=== PATIENT | female | born 1950 | race Caucasian/White ===

== ENCOUNTER 2016-11-10 01:48 | Emergency (ER) | payer MEDICARE, BC ==
[2016-11-10 02:00] VITALS: BP 181/95
--- NOTE | 2016-11-10 02:08 | EDM.PDOC ---
ED HPI GI/ABDOMINAL - General Chief Complaint: Abdominal Pain Stated Complaint: UPPER ABDOMINAL PAIN Time Seen by Provider: 11/10/16 02:00 - History of Present Illness INITIAL COMMENTS - FREE TEXT/NARRATIVE: 66-year-old female presents emergency room with abdominal pain. This abdominal pain started this evening around 6:00. She had dinner around 5: 00. Patient does not have a recurrent history of heartburn reflux or dyspepsia. This pain is not associated with any nausea vomiting or diarrhea the patient has not noticed any fevers or chills. The pain at times radiates in towards the right breast. It does not go into her neck or into either of her arms. It is not associated with any breathing difficulties or shortness of breath. And she is not having any diaphoresis. The patient was evaluated for palpitations a little over a year ago, other than this she has no significant cardiac history. At this time the patient rates her pain at a 5/10. - Related Data Allergies/ADRs: Allergies Allergy/AdvReac Type Severity Reaction Status Date / Time erythromycin base Allergy Vomiting Verified 09/11/15 23:41 latex Allergy Rash Verified 09/11/15 23:41 tomato Allergy Cannot Verified 11/10/16 01:56 Remember Home Meds: Home Meds Cholecalciferol (Vitamin D3) [Vitamin D3] 3,000 mg PO DAILY 11/10/16 [History] Gabapentin [Neurontin] 600 mg PO BEDTIME 11/10/16 [History] L.acidoph,Paracasei, B.lactis [Probiotic] 1 cap PO DAILY 11/10/16 [History] Methocarbamol [Robaxin] 500 mg PO Q6H PRN 11/10/16 [History] Multivit-Min/FA/Lycopene/Lut [Centrum Silver Tablet] 1 tab PO DAILY 11/10/16 [ History] Sucralfate [Carafate] 1 gm PO QIDACANDBED #60 tablet 11/10/16 [Rx] atorvaSTATin [Lipitor] 20 mg PO BEDTIME 11/10/16 [History] traMADol [Ultram] 50 mg PO Q8H PRN 11/10/16 [History] Past Medical History 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: Other (see below) Other OB/BYN History: hot flashes Neurological History: Reports: Other (see below) Other Neuro History: chronic low back pain - Past Surgical History Musculoskeletal Surgical History: Reports: Other (see below) Other Musculoskeletal Surgeries/Procedures:: ganglion removed from left foot Oncologic Surgical History: Reports: Biopsy of breast Social & Family History - Family History Cardiac: Reports: Afib - Tobacco Use Smoking Status *Q: Never Smoker Second Hand Smoke Exposure: No - Recreational Drug Use Recreational Drug Use: No ED ROS GENERAL - Review of Systems Review Of Systems: See Below Constitutional: Denies: fever, chills HEENT: Reports: No symptoms Respiratory: Reports: No Symptoms Cardiovascular: Reports: No symptoms GI/Abdominal: Reports: Abdominal pain. Denies: Constipation, Diarrhea, Nausea, Vomiting : Reports: no symptoms Musculoskeletal: Reports: back pain (This is chronic) Neurological: Reports: No Symptoms Psychiatric: Reports: No symptoms ED EXAM, GI/ABD - Physical Exam Exam: See Below Exam Limited By: No limitations General Appearance: alert, no apparent distress, other (Her blood pressure was initially quite elevated this did come down fairly quickly.) Head: atraumatic, normocephalic Neck: normal inspection, supple, non-tender, full range of motion Respiratory/Chest: no respiratory distress, lungs clear, normal breath sounds Cardiovascular: regular rate, rhythm, no edema, no murmur GI/Abdominal: normal bowel sounds, soft, other (She has midepigastric discomfort no right upper quadrant discomfort. No other palpable discomfort noted area no rebound or guarding.) Back Exam: normal inspection. No: CVA tenderness (L), CVA tenderness (R) Extremities: normal inspection, no pedal edema Course - Vital Signs Last Recorded V/S: Last Vital Signs Temp 36.1 C 11/10/16 01:56 Pulse 76 11/10/16 01:56 Resp 17 11/10/16 01:56 BP 181/95 H 11/10/16 01:56 Pulse Ox 98 11/10/16 01:56 - Orders/Labs/Meds Orders: Active Orders 24 hr Category Date Time Status EKG Documentation Completion [RC] STAT Care 11/10/16 02:09 Active Chest 1V Frontal [CR] Stat Exams 11/10/16 02:08 Taken Labs: Laboratory Tests 11/10/16 11/10/16 Range/Units 02:04 02:04 WBC 8.83 (3.98-10.04) K/mm3 RBC 5.03 (3.98-5.22) M/mm3 Hgb 15.3 (11.2-15.7) gm/L Hct 44.0 (34.1-44.9) % MCV 87.5 (79.4-94.8) fl MCH 30.4 (25.6-32.2) pg MCHC 34.8 (32.2-35.5) g/dl RDW Std Deviation 39.4 (36.4-46.3) fL Plt Count 223 (182-369) K/mm3 MPV 9.4 (9.4-12.3) fl Neutrophils % (Manual) 59 (40-60) % Band Neutrophils % 0 (0-10) % Lymphocytes % (Manual) 28 (20-40) % Atypical Lymphs % 0 % Monocytes % (Manual) 11 H (2-10) % Eosinophils % (Manual) 0 L (0.7-5.8) % Basophils % (Manual) 2 H (0.1-1.2) Platelet Estimate Adequate Plt Morphology Comment Normal RBC Morph Comment Normal Sodium 140 (136-145) mEq/L Potassium 3.5 (3.5-5.1) mEq/L Chloride 105 (98-107) mEq/L Carbon Dioxide 28 (21-32) mEq/L Anion Gap 10.5 (5-15) BUN 12 (7-18) mg/dL Creatinine 0.9 (0.55-1.02) mg/dL Est Cr Clr Drug Dosing 53.81 mL/min Estimated GFR (MDRD) > 60 (>60) mL/min BUN/Creatinine Ratio 13.3 L (14-18) Glucose 115 (80-115) mg/dL Calcium 9.5 (8.5-10.1) mg/dL Total Bilirubin 1.4 H (0.2-1.0) mg/dL AST 21 (15-37) U/L ALT 42 (14-59) U/L Alkaline Phosphatase 73 (46-116) U/L Troponin I < 0.017 (0.00-0.056) ng/mL Total Protein 7.6 (6.4-8.2) g/dl Albumin 4.4 (3.4-5.0) g/dl Globulin 3.2 gm/dL Albumin/Globulin Ratio 1.4 (1-2) Lipase 146 (73-393) U/L Meds: Medications Discontinued Medications Generic Name Dose Route Start Last Admin Trade Name Jennifer PRN Reason Stop Dose Admin Al Hydroxide/Mg Hydroxide 30 0 ml 11/10/16 02:10 11/10/16 02:15 ml/ Lidocaine HCl 15 ml PO 11/10/16 02:11 45 ml ONETIME ONE Administration - Re-Assessments/Exams Free Text/Narrative Re-Assessment/Exam: 11/10/16 02:55 EKG is fairly normal no significant change from last year chest x-ray shows no acute cardiopulmonary changes no air noted under the diaphragm. Laboratory evaluation shows normal lipase and troponin her total bilirubin slightly elevated at 1.4 no other significant abnormalities noted The patient was treated with a GI cocktail her pain dropped from a 5/10 to a 2/ 10 after several minutes. 11/10/16 03:40 Patient was given Carafate and is for the most part pain-free at this point. Patient will be discharged home on Carafate as she does not tolerate PPIs. An H2 suleman would be in the future. We will obtain a gallbladder ultrasound as an outpatient Departure - Departure Time of Disposition: 03:41 Disposition: Home, Self-Care 01 Clinical Impression: Upper abdominal pain Prescriptions: Sucralfate [Carafate] 1 gm PO QIDACANDBED #60 tablet Forms: ED Department Discharge Additional Instructions: Return to the emergency room with any questions or problems. You have been started on Carafate take one before meals and at bedtime 4 times daily. Continue your other medications take one hour before or 2 hours after the Carafate You will be scheduled for a gallbladder ultrasound this next week. Followup with your regular physician after this has been done. - My Orders Last 24 Hours: My Active Orders 11/10/16 02:08 Chest 1V Frontal [CR] Stat 11/10/16 02:09 EKG Documentation Completion [RC] STAT - Assessment/Plan Last 24 Hours: My Active Orders 11/10/16 02:08 Chest 1V Frontal [CR] Stat 11/10/16 02:09 EKG Documentation Completion [RC] STAT
[2016-11-10] MEDS ORDERED: Alum Hydrox/Mag Hydrox/Simeth 30 ML, Lidocaine 2% 15 ML PO ONE ×2 (02:10)
[2016-11-10] MEDS ORDERED: Sucralfate Suspension 1 GM/10 ML Cup PO ONE (03:03)
--- NOTE | 2016-11-11 09:26 | CR ---
Chest: Portable view of the chest was obtained. Comparison: Previous chest x-ray of 09/11/15. Heart size and mediastinum are within normal limits. Lungs are clear. Mild scoliosis is present within the spine. Impression: 1. Nothing acute is seen on portable chest x-ray. Diagnostic code #2
== END 2016-11-10 04:06 | disposition home or self-care (01) ==
LOC: JD.ED 01:48
DX: R10.10 Upper abdominal pain, unspecified (principal); Z88.5 Allergy status to narcotic agent; Z79.899 Other long term (current) drug therapy
CPT/HCPCS: 36415; 71010; 80053; 83690; 84484; 85025; 93005; 99284; A9270; 99283

== ENCOUNTER 2017-02-19 07:19 | Day surgery (SDC) | payer MEDICARE, BC ==
[~2017-02-19 07:19] MED LIST: HYDROmorphone 1 MG/ML Syringe ONE; Lactated Ringers 1,000 ML ONE; Lidocaine 1% 4 ML ONE; Lidocaine 1%/Sod Bicarbonate in NS 8.4% 1 ML Syringe PRN; Midazolam 1 MG/ML 2 ML SDV ONE; Ondansetron 4 MG/2 ML SDV ONE; Propofol 200 MG/20 ML SDV ONE; Rocuronium 50 MG/5 ML Vial ONE; Sodium Chloride 0.9% 10 ML Syringe FLUSH PRN; ceFAZolin 1 GM Vial ONE; fentaNYL 250 MCG/5 ML SDV ONE
--- NOTE | 2017-02-19 07:39 | PCM.HP ---
H&P History of Present Illness - General Date of Service: 02/19/17 Admit Problem/Dx: Symptomatic cholelithiasis, hx of RUQ pain/epigastric pain, elevated total and indirect bilirubin Source of Information: Patient History Limitations: Reports: No Limitations - History of Present Illness Initial Comments - Free Text/Narative: The patient is a 66-year-old female initially referred by Dr. Cunningham for gallstone evaluation. The patient presents today for laparoscopic cholecystectomy and intra operative cholangiogram. She was last evaluated in the clinic 12/31. She denies health changes since her last visit. She did see Dr. Cunningham for preoperative clearance prior to surgery. She was considered low risk for ambulatory surgery. Holter monitor was ordered. She did have a Holter monitor showing, " Baseline normal sinus rhythm without any tachyarrhythmias or bradyarrhythmias. Premature atrial contractions (PACs) cluster between 7 p.m. and midnight that are sometimes symptomatic.' Dr. Cunningham did "Notify patient that her Holter monitor does show she is having atrial premature contractions. ~These are benign extra heartbeats that can feel like palpitations. ~they tend, in her case , to cluster between 7:00 PM and midnight. Smoking, caffeine intake, alcohol intake, stress are things that contribute to these extra heartbeats.If they're bothersome for her, there is medical treatment that we can use to help control them. ~This would be a pill called metoprolol that would help regulate her heartbeat. ~This is not necessary it is only if the symptoms are bothersome to her." She reports she notes the palpitations seem to occur after taking gabapentin. She reports she has had palpitations prior to taking gabapentin several times as well. She reports the palpitations started after her back injury. She denies any palpitations presently. She has had some throbbing in her RUQ. she reports she has some throbbing now, "like a baby is kicking." She reports she had the throbbing after eating buttered dumplings last week and had some diarrhea after this meal as well. Denies any severe abdominal pain since her last visit. Labs 12/31: CBC unremarkable, BMP normal. ~Bilirubin total elevated, but was down to 1.6, bilirubin total was 2 on 11/09/16. ~Direct bilirubin is normal at 0.4. ~Indirect is elevated at 1.2. TSH was normal at 1.42. ~ 11/10/16: Patient did go to ED for evaluation of abdominal pain. The pain began around 1 hour after eating dinner. She reported the pain would radiate toward her right breast. ~She reported a history of palpitations but these have been going on for a year. ~She had mid epigastric discomfort on exam. ~Blood pressure was elevated upon arrival at 181/95. ~~It did apparently come down per ED report she did have an EKG that showed normal ECG in ~Sinus rhythm. ~CBC was normal with the exception of slightly elevated monocytes 11 and elevated Basophil % of 2. CMP was normal following exceptions. ~Her total bilirubin was elevated at 1.4. ~Troponin was negative at less than 0.017. ~Lipase was normal at 146. ~Her chest x-ray per ED report showed no acute changes. ~The patient was treated with GI cocktail and her pain dropped from 5 out of 10 from 2/10. ~ She was discharged home on Carafate as apparently she does not tolerate proton pump inhibitors. ~Gallbladder ultrasound was obtained on an outpatient basis. ~ Limited abdominal ultrasound showed multiple gallstones. ~No gallbladder wall thickening or biliary duct dilatation was seen. ~The liver was slightly echogenic possibly due to mild fatty infiltration. ~Pancreas was within normal limits. ~She did also have an elevated total bilirubin of 2 on 11/09. ~ Described the pain previously as burning, throbbing pain in her right upper abdomen and epigastrium. ~She reports the pain is 6/10 at its worst. ~Her mother and granddaughter had gallbladder disease. ~Reports she Took Prilosec while on Meloxican and this induced heartburn. ~NO:~nausea, vomiting, or dysphagia. Previously denied ally/light colored stools. ~No greasy stools. Had nausea and vomiting at ED~visit as well. ~Was given Carfate and this made her feel sick . ~Had fish sticks and corn prior to going into ED. Has had multiple episodes of upper abdominal pain. Previously reported a right abdominal tightness like a rock at times and pain into the shoulder blades at times. ~NO icterus, jaundice, no dark urine. ~November had pain daily. Had pain once in December. ~ Once after eating at [employer] and had chicken dayana and did have some throbbing abdominal pain. ~ Hx of mild ~Constipation with Tramadol. NO: hematochezia/ melena/blood on tissue paper. ~Has external hemorrhoids, not bothersome. Has 1~soft, brown, formed, BMs daily. ~Bowel movements are described as regular and easy to pass. No unintentional weight loss. No change in stool caliber. No abdominal pain today. ~Denies history of ulcerative colitis or Crohn's disease. Denies any family history of inflammatory bowel disease or GI cancers. ~Last colonoscopy was never. Had recent negative FIT test. - Related Data Allergies/Adverse Reactions: Allergies Allergy/AdvReac Type Severity Reaction Status Date / Time latex Allergy Rash Verified 02/18/17 15:20 tomato Allergy Cannot Verified 02/18/17 15:20 Remember erythromycin base AdvReac Vomiting Verified 02/18/17 15:20 Home Medications: Home Meds Cholecalciferol (Vitamin D3) [Vitamin D3] 3,000 mg PO DAILY 11/10/16 [History] Gabapentin [Neurontin] 600 mg PO BEDTIME 11/10/16 [History] Methocarbamol [Robaxin] 500 mg PO Q6H PRN 11/10/16 [History] Multivit-Min/FA/Lycopene/Lut [Centrum Silver Tablet] 1 tab PO DAILY 11/10/16 [ History] traMADol [Ultram] 50 mg PO Q8H PRN 11/10/16 [History] Past Medical History HEENT History: Reports: Impaired Vision, Other (See Below) Other HEENT History: wears glasses Cardiovascular History: Reports: High Cholesterol, Other (See Below) Other Cardiovascular History: palpitations Respiratory History: Reports: None Gastrointestinal History: Reports: GERD, Other (See Below) Other Gastrointestinal History: symptomatic cholelithiasis, gallstones, increased bilirubin [facility] [employer] History: Reports: None Other OB/BYN History: hot flashes Musculoskeletal History: Reports: Back Pain, Chronic, Other (See Below) Other Musculoskeletal History: chronic Right SI joint pain, radicular pain of lower extremity, lumber degenerative disc disease Neurological History: Reports: Seizure Other Neuro History: chronic low back pain Psychiatric History: Reports: None Endocrine/Metabolic History: Reports: None Hematologic History: Reports: None Immunologic History: Reports: None Oncologic (Cancer) History: Reports: None Dermatologic History: Reports: None - Past Surgical History Head Surgeries/Procedures: Reports: None Respiratory Surgical History: Reports: None Female Surgical History: Reports: Breast Biopsy Musculoskeletal Surgical History: Reports: Other (See Below) Other Musculoskeletal Surgeries/Procedures:: foot surgery Social & Family History - Family History Cardiac: Reports: Afib - Tobacco Use Smoking Status *Q: Never Smoker Second Hand Smoke Exposure: No - Caffeine Use Caffeine Use: - Recreational Drug Use Recreational Drug Use: No H&P Review of Systems - Review of Systems: Review Of Systems: See Below Free Text/Narrative: Denies any exertional chest pain or shortness of breath. No history of any easy bleeding or bruising. No personal or familial history of clotting or bleeding disorders. No history of anesthetic complications. No history of familial anesthetic complications. Denies presence/history of chest pain. Hx of ~Palpitations several years ago with hormone supplement. ~Things got better. Then increased meloxicam and she had palpitations again. ~She then stopped the meloxicam and this got better. She regularly will have palpitations when she goes to bed. She reports this happens several times per week. She reports did go to ED 1.5 years ago for this. ~NO dizziness, chest pain with the palpitations reported with palpitations. ~ Holter 09/14/2015 showed, sinus with heart rate between 59 and 128 bpm with an average of 80 bpm. ~There were 92 singly occurring PACs. ~There were no episodes of ventricular or supraventricular tachycardia. ~The patient did not report any symptoms.The patient did go to the emergency room 09/11/2015 for chest complaints. ~CBC was normal at that time. ~CMP was normal with the following exceptions. ~ALT was slightly elevated at 71. ~Total bilirubin was normal at 0.9. ~Calcium is normal at 9.1. ~Magnesium was normal at 2.1. ~ Troponin was negative. ~TSH is elevated at 8.137. ~She did follow her primary care provider. ~Holter was negative as above. ~Follow-up TSH in October 2015 was normal at 1.89. ~Free T4 was normal at 1. NO: ~lower extremity edema, dyspnea, orthopnea, claudication, wheezing, obstructive sleep apnea, chronic cough, upper respiratory symptoms in the last two weeks. No history of blood thinner use. No history of anemia. History of seizure as child, last at age 5. NO: ~stroke. ~ No history of fever, chills, or night sweats. No prior cardiology or pulmonology evaluation. All other systems reviewed and were negative except as per history of present illness. General: Reports: No Symptoms. Denies: Fever, Chills, Night Sweats HEENT: Reports: No Symptoms Pulmonary: Reports: No Symptoms. Denies: Shortness of Breath, Wheezing Cardiovascular: Reports: No Symptoms. Denies: Chest Pain, Palpitations Gastrointestinal: Reports: Abdominal Pain (RUQ throbbing ) Genitourinary: Reports: No Symptoms Musculoskeletal: Reports: Back Pain Skin: Reports: No Symptoms Psychiatric: Reports: No Symptoms Neurological: Reports: No Symptoms Hematologic/Lymphatic: Reports: No Symptoms Immunologic: Reports: No Symptoms Review of Systems Comment:: see hpi and ros Exam - Exam Exam: See Below - Vital Signs Weight: 68.039 kg - Exam General: Alert, Oriented HEENT: Conjunctiva Clear. No: Scleral Icterus Lungs: Clear to Auscultation, Normal Respiratory Effort Cardiovascular: Regular Rate, Regular Rhythm, Normal S1, Normal S2. No: Systolic Murmur, Diastolic Murmur, Rubs, Gallop/S3, Gallop/S4 Abdomen: Soft. No: Tenderness Back Exam: Normal Inspection Extremities: Normal Inspection. No: Edema Skin: Warm, Dry, Intact Neuro Extensive - Mental Status: Alert, Oriented x3, Normal Mood/Affect, Normal Cognition, Memory Intact Psychiatric: Alert, Normal Affect, Normal Mood *Q Meaningful Use (ADM) - VTE *Q VTE Criteria *Q: - Stroke *Q Stroke Criteria *Q: - AMI *Q AMI Criteria *Q: - Problem List (1) Cholelithiasis SNOMED Code(s): 034210528 ICD Code: K80.20 - CALCULUS OF GALLBLADDER W/O CHOLECYSTITIS W/O OBSTRUCTION Status: Acute Current Visit: Yes Qualifiers: Cholelithiasis location: gallbladder Cholecystitis presence: without cholecystitis Biliary obstruction: without biliary obstruction Qualified Code(s): K80.20 - Calculus of gallbladder without cholecystitis without obstruction (2) Elevated bilirubin SNOMED Code(s): 935113545 ICD Code: R17 - UNSPECIFIED JAUNDICE Status: Acute Current Visit: Yes (3) Upper abdominal pain SNOMED Code(s): 93932108 ICD Code: R10.10 - UPPER ABDOMINAL PAIN, UNSPECIFIED Status: Acute Current Visit: No Problem List Initiated/Reviewed/Updated: Yes Orders Last 24hrs: Active Orders 24 hr Category Date Time Status Peripheral IV Care [RC] . DIRECTED Care 02/19/17 00:01 Active Verify Patient Consent Obtain [RC] ASDIRECTED Care 02/19/17 00:01 Active Lactated Ringers [Ringers, Lactated] 1,000 ml Med 02/19/17 00:01 Active IV ASDIRECTED Lidocaine 1%/Sod Bicarbonate [Buffered Lidocaine 1% in Med 02/19/17 00:01 Active NS 8.4%] 0.25 ml .XX ONETIME PRN Sodium Chloride 0.9% [Saline Flush] Med 02/19/17 00:01 Active 10 ml FLUSH ASDIRECTED PRN Medication Administration Instruction [OM.PC] Routine Oth 02/19/17 00:01 Ordered Peripheral IV Insertion Adult [OM.PC] Routine Oth 02/19/17 00:01 Ordered Medication Orders Lactated Ringer's (Ringers, Lactated) 1,000 mls @ 125 mls/hr IV ASDIRECTED TOMAS Stop: 02/19/17 23:00 Lidocaine/Sodium Bicarbonate (Buffered Lidocaine 1% In Ns 8.4%) 0.25 ml .XX ONETIME PRN PRN Reason: Prior to IV Start Stop: 02/19/17 18:00 Sodium Chloride (Saline Flush) 10 ml FLUSH ASDIRECTED PRN PRN Reason: Keep Vein Open Stop: 02/19/17 18:00 Assessment/Plan Comment:: 66yr female with symptomatic cholelithiasis, hx of RUQ/epigastric pain, hx of elevated bilirubin, need for laparoscopic cholecystectomy and intraoperative cholangiogram Patient can perform 4 METS of physical activity without chest pain or shortness of breath. ~ PLAN: We discussed laparoscopic cholecystectomy with intraoperative cholangiogram for treatment of symptomatic cholelithiasis, elevated bilirubin, and associated symptoms. We discussed risks of the procedure including pain, bleeding, need for additional procedures, damage to surrounding structures including the biliary system and common bile duct, liver, small bowel, stomach and colon. We discussed the risk of postoperative change in bowel habits which can be permanent. We reviewed the post-operative lifting restrictions of no more than 20 lbs for 4 weeks. The patient's questions were answered. Procedure will occur today at [facility] due to palpitations, PACs on recent Holter. I personally reviewed the patient's previous medical records and laboratory studies. Patient verbalized understanding and agreed with care plan. Patient was evaluated with Dr. Molly Millard, plan formulated above by Dr. Molly Millard. JULIOCESAR [place] scribing for Dr. Molly Millard General Surgery Department [facility]
[2017-02-19] MEDS: Lactated Ringers 1,000 ML IV SCH ×2 (07:50→11:36)
[2017-02-19] MEDS ORDERED: Bupivacaine 0.5%/EPINEPHrine 1:200,000 50 ML MDV ONE (07:51)
[2017-02-19] MEDS ORDERED: Lidocaine 1% with EPINEPHrine 1:100,000 20 ML MDV ONE (07:51)
--- NOTE | 2017-02-19 09:14 | PCM.PREANE ---
Preanesthetic Assessment - Procedure Proposed Procedure: Cholecystectomy - Anesthesia/Transfusion/Family Hx Anesthesia History: Prior Anesthesia Without Reaction Family History of Anesthesia Reaction: No Transfusion History: No Prior Transfusion(s) - Review of Systems General: No Symptoms Pulmonary: No Symptoms Cardiovascular: Palpitations Gastrointestinal: No symptoms Neurological: No Symptoms Other: Reports: None - Physical Assessment NPO Status Date: 02/18/17 NPO Status Time: 19:30 O2 Sat by Pulse Oximetry: 99 Respiratory Rate: 16 Vital Signs: Last Vital Signs Temp 36.3 C 02/19/17 07:30 Pulse 68 02/19/17 07:30 Resp 16 02/19/17 07:30 BP 152/93 H 02/19/17 07:30 Pulse Ox 99 02/19/17 07:30 Height: 1.63 m Weight: 68.039 kg ASA Class: 2 Mental Status: Alert & Oriented x3 Airway Class: Mallampati = 1 Dentition: Reports: New Alluwe(s), Missing Tooth/Teeth (missing 1) Thyro-Mental Finger Breadths: 3 Mouth Opening Finger Breadths: 3 ROM/Head Extension: Full Lungs: Clear to auscultation, Normal respiratory effort Cardiovascular: Regular Rate, Regular Rhythm, No Murmurs - Lab Values: Lab values from [facility] essentially normal from 11/10/16 - Imaging/EKG Impressions: EKG - NSR - Allergies Allergies/Adverse Reactions: Allergies Allergy/AdvReac Type Severity Reaction Status Date / Time latex Allergy Rash Verified 02/18/17 15:20 tomato Allergy Cannot Verified 02/18/17 15:20 Remember erythromycin base AdvReac Vomiting Verified 02/18/17 15:20 - Acknowledgements Anesthesia Type Planned: General Anesthesia Pt an Appropriate Candidate for the Planned Anesthesia: Yes Alternatives and Risks of Anesthesia Discussed w Pt/Guardian: Yes Pt/Guardian Understands and Agrees with Anesthesia Plan: Yes PreAnesthesia Questionnaire HEENT History: Reports: Impaired Vision, Other (See Below) Other HEENT History: wears glasses Cardiovascular History: Reports: High Cholesterol, Other (See Below) Other Cardiovascular History: palpitations associated by pt with pain meds for back meds. she reports just noticing the asymptomatic palpitations. no other associated symptoms. recent EKG is NSR Respiratory History: Reports: None Gastrointestinal History: Reports: GERD, Other (See Below) Other Gastrointestinal History: symptomatic cholelithiasis, gallstones, increased bilirubin [employer] History: Reports: None Other OB/BYN History: hot flashes Musculoskeletal History: Reports: Back Pain, Chronic, Other (See Below) Other Musculoskeletal History: chronic Right SI joint pain, radicular pain of lower extremity, lumber degenerative disc disease Neurological History: Reports: Seizure Other Neuro History: chronic low back pain Psychiatric History: Reports: None Endocrine/Metabolic History: Reports: None Hematologic History: Reports: None Immunologic History: Reports: None Oncologic (Cancer) History: Reports: None Dermatologic History: Reports: None - Past Surgical History Head Surgeries/Procedures: Reports: None Respiratory Surgical History: Reports: None Female Surgical History: Reports: Breast Biopsy Musculoskeletal Surgical History: Reports: Other (See Below) Other Musculoskeletal Surgeries/Procedures:: foot surgery - SUBSTANCE USE Smoking Status *Q: Never Smoker Second Hand Smoke Exposure: No Days Per Week of Alcohol Use: 0 Recreational Drug Use History: No - HOME MEDS Home Medications: Home Meds Cholecalciferol (Vitamin D3) [Vitamin D3] 3,000 mg PO DAILY 11/10/16 [History] Gabapentin [Neurontin] 600 mg PO BEDTIME 11/10/16 [History] Methocarbamol [Robaxin] 500 mg PO Q6H PRN 11/10/16 [History] Multivit-Min/FA/Lycopene/Lut [Centrum Silver Tablet] 1 tab PO DAILY 11/10/16 [ History] Ondansetron [Zofran ODT] 4 mg PO Q6H PRN #5 tab.dis 02/19/17 [Rx] Sennosides/Docusate Sodium [Senna-S] 2 tab PO BID #20 tablet 02/19/17 [Rx] traMADol [Ultram] 50 - 100 mg PO Q6H PRN #20 tablet 02/19/17 [Rx] - CURRENT (IN HOUSE) MEDS Current Meds: Current Medications Lactated Ringer's (Ringers, Lactated) 1,000 mls @ 125 mls/hr IV ASDIRECTED TOMAS Stop: 02/19/17 23:00 Last Admin: 02/19/17 07:50 Dose: 125 mls/hr Lidocaine/Sodium Bicarbonate (Buffered Lidocaine 1% In Ns 8.4%) 0.25 ml .XX ONETIME PRN PRN Reason: Prior to IV Start Stop: 02/19/17 18:00 Last Admin: 02/19/17 07:50 Dose: 0.25 ml Sodium Chloride (Saline Flush) 10 ml FLUSH ASDIRECTED PRN PRN Reason: Keep Vein Open Stop: 02/19/17 18:00 Discontinued Medications Bupivacaine HCl/Epinephrine Bitart (Marcaine 0.5%/Epinephrine 1:200,000) Confirm Administered Dose 50 ml .ROUTE .STK-MED ONE Stop: 02/19/17 07:52 Cefazolin Sodium (Ancef) Confirm Administered Dose 2 gm .ROUTE .STK-MED ONE Stop: 02/19/17 07:01 Fentanyl (Sublimaze) Confirm Administered Dose 250 mcg .ROUTE .STK-MED ONE Stop: 02/19/17 07:02 Hydromorphone HCl (Dilaudid) Confirm Administered Dose 1 mg .ROUTE .ST-MED ONE Stop: 02/19/17 07:01 Lidocaine HCl (Xylocaine-Mpf 1%) Confirm Administered Dose 4 mls @ as directed .ROUTE .ST-MED ONE Stop: 02/19/17 07:01 Lactated Ringer's (Ringers, Lactated) Confirm Administered Dose 1,000 mls @ as directed .ROUTE .ST-MED ONE Stop: 02/19/17 07:01 Lidocaine/Epinephrine (Xylocaine 1% With Epinephrine 1:100,000) Confirm Administered Dose 20 ml .ROUTE .STK-MED ONE Stop: 02/19/17 07:52 Midazolam HCl (Versed 1 Mg/Ml) Confirm Administered Dose 2 mg .ROUTE .STK-MED ONE Stop: 02/19/17 07:02 Ondansetron HCl (Zofran) Confirm Administered Dose 4 mg .ROUTE .STK-MED ONE Stop: 02/19/17 07:01 Propofol (Diprivan 20 Ml) Confirm Administered Dose 200 mg .ROUTE .STK-MED ONE Stop: 02/19/17 07:01 Rocuronium [place] (Zemuron) Confirm Administered Dose 50 mg .ROUTE .STK-MED ONE Stop: 02/19/17 07:01
[2017-02-19] MEDS ORDERED: Ondansetron 4 MG/2 ML SDV IVPUSH PRN (09:17)
[2017-02-19] MEDS ORDERED: HYDROmorphone 0.5 MG/0.5 ML Syringe IVPUSH PRN (09:17)
[2017-02-19] MEDS ORDERED: Sodium Chloride 0.9% 50 ML SDV ONE (09:41)
[2017-02-19] MEDS ORDERED: Iopamidol 612 MG/ML 50 ML SDV ONE (09:41)
[2017-02-19] MEDS ORDERED: HYDROmorphone 1 MG/ML Syringe ONE (09:43)
[2017-02-19] MEDS ORDERED: fentaNYL 100 MCG/2 ML SDV ONE (09:44)
--- NOTE | 2017-02-19 10:19 | PCM.OPNOTE ---
- General Post-Op/Procedure Note Date of Surgery/Procedure: 02/19/17 Operative Procedure(s): 1. Laparoscopic cholecystectomy with intraoperative cholangiogram. 2. Fluoroscopic guidance and interpretation Pre Op Diagnosis: Symptomatic cholelithiasis, history of elevated total bilirubin Post-Op Diagnosis: Chronic cholecystitis, cholelithiasis, normal intraoperative cholangiogram Anesthesia Technique: General ET tube, Local Primary Surgeon: Molly Millard Anesthesia Provider: Odessa Kurtz Certified Ophthalmic Technician: Ann Sutherland Pathology: Gallbladder and contents Fluid Replacement, Intraop: 1,300 (mL crystalloid) EBL in mLs: 8 Complications: None Condition: Good Free Text/Narrative:: INDICATION FOR PROCEDURE: The patient is a 66-year-old woman who had been referred to me Dr. Cunningham for evaluation for symptomatic cholelithiasis. She also had been noted to have an elevated total bilirubin previously, but a normal direct bilirubin. I discussed with the patient performing a laparoscopic cholecystectomy with intraoperative cholangiogram and associated risks of the procedure. The patient found these risks acceptable and agreed to proceed. DESCRIPTION OF PROCEDURE: The patient was taken to the operating room and placed in the supine position. Sequential compressive devices were placed on the bilateral lower extremities. After induction of general endotracheal anesthesia, the abdomen was prepped and draped in the usual sterile fashion. Preoperative antibiotics had been administered as per protocol. A supraumbilical curvilinear incision was made using a scalpel. This was deepened down through the subcutaneous tissues to the anterior abdominal wall fascia which was elevated and incised. The abdomen was bluntly entered using a hemostat. An 0 Vicryl stay suture was placed. A [place]hton cannula was introduced into the abdomen and the abdomen was insufflated to 15 mm of mercury. The abdomen was then surveyed with the patient supine and in steep Trendelenburg. The bilateral groins were unremarkable. The liver was unremarkable. The visualized portions of the large and small intestine were unremarkable. The ovaries were not visualized. A portion of the uterus was visualized and it was unremarkable. Attention was turned then to the patient's gallbladder which was whitish in coloration with adhesions to the infundibulum. Three additional 5 mm trocars were then placed under direct visualization after first injecting local anesthetic, one in the epigastrium, one in the right subcostal margin, and one in the right lateral subcostal margin. The adhesions to the infundibulum were taken down with blunt dissection and electrocautery. The gallbladder fundus was elevated, and the triangle of Calot was dissected. The critical view of safety was obtained. The Nolan cholangiocatheter clamp was placed and the catheter advanced into the infundibulum under direct visualization. A cholangiogram was performed. There was free flow contrast into the duodenum. There was a smooth and tapered common bile duct with no evidence of stricture or obstruction/ filling defects. Retrograde flow was seen into the common hepatic duct and hepatic radicals without abnormality. The cholangiocatheter was removed. The cystic duct was then triply clipped and fully transected. The cystic artery was then triply clipped and transected using Endo Eddie. The gallbladder was placed into an EndoCatch bag. The abdomen was irrigated and suctioned until the effluent was clear. The liver bed was reinspected for hemostasis. The 5 mm trocars were removed with no evidence of bleeding. The Ashton cannula and gallbladder within the EndoCatch bag were then removed. There were several stones palpable within the gallbladder. The patient's fascial incision was closed using an 0 Vicryl [id number] suture. Additional local anesthetic was injected mary-incisionally. The incisions were then closed using subcuticular 4-0 Monocryl suture. Dermabond was placed over the patient's skin incisions. The patient was then awakened from anesthesia, extubated, and transferred to the recovery room in stable condition having tolerated the procedure well. Sponge and instrument counts were reported as correct at the end of the case. POSTOPERATIVE PLAN: The patient will be discharged home today. Prescriptions for Percocet 5/325mg were given in addition to Zofran ODT and senna S. They will follow up in 1 week for a post-operative check. They are not lift over 20 pounds for the next 4 weeks. They are to call the office with any questions or concerns. I discussed my intraoperative findings and discharge instructions with the patient's . The skilled assistance of my surgical services director, JULIOCESAR Montalvo, was necessary because a qualified resident was not available. She participated in positioning of the patient, assistance with the procedure, assistance with wound closure, and dressing application.
[2017-02-19] MEDS ORDERED: Naloxone 0.4 MG/ML SDV ONE (10:38)
--- NOTE | 2017-02-19 10:48 | PCM.POSTAN ---
POST ANESTHESIA ASSESSMENT - MENTAL STATUS Mental Status: alert - VITAL SIGNS Pulse Rate: 94 SaO2: 100 Resp Rate: 20 Blood Pressure: 157/76 Temperature: 36.6 C - RESPIRATORY Respiratory Status: respiratory rate WNL, airway patent, O2 saturation stable, supplemental oxygen - CARDIOVASCULAR CV Status: pulse rate WNL, blood pressure stable - GASTROINTESTINAL GI Status: no symptoms - POST OP HYDRATION Hydration Status: adequate & stable
[2017-02-19] MEDS: fentaNYL 100 MCG/2 ML SDV IVPUSH PRN ×2 (10:55→11:25)
--- NOTE | 2017-02-19 11:47 | PCM48HPAN ---
Post Anesthesia Note - EVALUATION WITHIN 48HRS OF ANESTHETIC Vital Signs in Normal Range: Yes Patient Participated in Evaluation: Yes Respiratory Function Stable: Yes Airway Patent: Yes Cardiovascular Function Stable: Yes Hydration Status Stable: Yes Pain Control Satisfactory: Yes Nausea and Vomiting Control Satisfactory: Yes Mental Status Recovered: Yes
[2017-02-19] MEDS ORDERED: traMADol 50 MG Tab PO SCH (12:15)
[2017-02-19] MEDS ORDERED: Albuterol 0.083% 2.5 MG/3 ML Neb Soln NEB ONE (13:27)
[2017-02-19] MEDS ORDERED: Scopolamine 1.5 MG Transdermal Patch TOP ONE (14:09)
[2017-02-19 14:10] VITALS: BP 147/81
--- NOTE | 2017-02-19 14:30 | CR ---
Operative cholangiogram: Multiple fluoroscopic spot views were obtained utilizing C-arm device in the operating room. There is opacification of the CHD and CBD as well as main intrahepatic ducts. Contrast is noted within the duodenum. No filling defects are seen to indicate retained stone. Impression: 1. No abnormality is identified on operative cholangiogram exam. Diagnostic code #1
== END 2017-02-19 15:30 | disposition home or self-care (01) ==
LOC: JD.SDS 07:19
PROVIDERS: ATTEND Surgery
DX: K80.10 Calculus of gallbladder with chronic cholecystitis without obstruction (principal); E78.00 Pure hypercholesterolemia, unspecified; K21.9 Gastro-esophageal reflux disease without esophagitis; Z88.1 Allergy status to other antibiotic agents; Z91.040 Latex allergy status; Z91.018 Allergy to other foods; Z79.899 Other long term (current) drug therapy; Z98.890 Other specified postprocedural states
CPT/HCPCS: 47562; 74300; 88304; 94664; A9270; J0690; J1170; J2250; J2310; J2405; J3010; J7120; Q9967; 00790; J2704

== ENCOUNTER 2017-09-05 04:38 | Emergency (ER) | payer MEDICARE, BC ==
[2017-09-05 04:48] VITALS: BP 188/86
[2017-09-05] MEDS ORDERED: Alum Hydrox/Mag Hydrox/Simeth 30 ML, Lidocaine 2% 15 ML PO STA ×2 (05:04)
--- NOTE | 2017-09-05 05:06 | EDM.PDOC ---
ED HPI GENERAL MEDICAL PROBLEM - General Chief Complaint: Chest Pain Stated Complaint: UPPER STOMACH & CHEST PAIN Time Seen by Provider: 09/05/17 04:46 Source of Information: Reports: Patient, Family (), Old Records History Limitations: Reports: No Limitations - History of Present Illness INITIAL COMMENTS - FREE TEXT/NARRATIVE: The patient states that she has been experiencing epigastric pain on and off for the past 2 weeks. On occasion, it radiates to her central chest. Such was the case this morning, around 01:30, after the patient went back to bed after getting up to go to the bathroom. The patient describes the pain as burning in character. She has no associated dyspnea, nausea, diaphoresis, or sense of impending doom. The patient states that the pain is similar to what she was experiencing prior to undergoing a cholecystectomy on 02/19/2017. Reviewing prior medical records, I see that the patient was seen in this ED on with epigastric pain radiating to her central chest, essentially the same as david's presentation. The pain significantly improved following a GI cocktail, and her workup from that visit was otherwise unremarkable. Nevertheless, the patient was then referred for an outpatient ultrasound of the right upper quadrant, which demonstrated cholelithiasis without evidence of cholecystitis. A HIDA scan was not performed. Based on the ultrasound findings, along with a report of elevated bilirubin - indirect, but not direct - the patient underwent the aforementioned cholecystectomy. The patient suffers from chronic low back pain, and had previously been on Mobic , prescribed by her pain specialist. At the time, he also recommended that she take a proton pump inhibitor, but the patient states that the proton pump inhibitor actually caused her to have reflux symptoms. At present, the patient takes no medications for acid reflux. The patient's PCP is Dr. Cunningham. Left Chest Pain Score (Numeric/FACES): 4 - Related Data Allergies Allergy/AdvReac Type Severity Reaction Status Date / Time latex Allergy Rash Verified 09/05/17 04:43 tomato Allergy Cannot Verified 09/05/17 04:43 Remember erythromycin base AdvReac Vomiting Verified 09/05/17 04:43 Home Meds: Home Meds Cholecalciferol (Vitamin D3) [Vitamin D3] 3,000 mg PO DAILY 11/10/16 [History] Gabapentin [Neurontin] 300 mg PO BEDTIME 11/10/16 [History] Multivit-Min/FA/Lycopene/Lut [Centrum Silver Tablet] 1 tab PO DAILY 11/10/16 [ History] traMADol [Ultram] 50 - 100 mg PO BID PRN 09/05/17 [History] Past Medical History HEENT History: Reports: Impaired Vision Other HEENT History: wears glasses Cardiovascular History: Reports: High Cholesterol (untreated), Hypertension ( possible - untreated) Gastrointestinal History: Reports: GERD Musculoskeletal History: Reports: Back Pain, Chronic - Past Surgical History GI Surgical History: Reports: Cholecystectomy (02/19/2017) Female Surgical History: Reports: Breast Biopsy (benign) Musculoskeletal Surgical History: Reports: Ganglion Cyst (Excised from left foot ) Social & Family History - Family History Cardiac: Reports: Afib - Tobacco Use Smoking Status *Q: Never Smoker Second Hand Smoke Exposure: No - Caffeine Use Caffeine Use: - Alcohol Use Alcohol Use History: No Days Per Week of Alcohol Use: 0 - Recreational Drug Use Recreational Drug Use: No - Living Situation & Occupation Living situation: Reports: , with Spouse Occupation: Employed ([employer]) ED ROS GENERAL - Review of Systems Review Of Systems: ROS reveals no pertinent complaints other than HPI. ED EXAM, GI/ABD - Physical Exam Exam: See Below Exam Limited By: No Limitations General Appearance: Alert, WD/WN, No Apparent Distress Eyes: Bilateral: Normal Appearance, EOMI Ears: Normal External Exam, Hearing Grossly Normal Nose: Normal Inspection, No Blood Throat/Mouth: Normal Inspection, Normal Lips, Normal Voice, No Airway Compromise Head: Atraumatic, Normocephalic Neck: Normal Inspection, Full Range of Motion Respiratory/Chest: No Respiratory Distress, Lungs Clear, Normal Breath Sounds, No Accessory Muscle Use, Chest Non-Tender Cardiovascular: Normal Peripheral Pulses, Regular Rate, Rhythm, No Edema, No Gallop, No JVD, No Murmur, No Rub GI/Abdominal Exam: Normal Bowel Sounds, Soft, Non-Tender (including the epigastrium), No Organomegaly, No Distention, No Abnormal Bruit, No Mass (Female) Exam: Deferred Rectal (Female) Exam: Deferred Back Exam: Normal Inspection, Full Range of Motion, NT Extremities: Normal Inspection, Normal Range of Motion, No Pedal Edema, Normal Capillary Refill Neurological: Alert, Oriented, Normal Cognition, No Motor/Sensory Deficits Psychiatric: Normal Affect Skin Exam: Warm, Dry, Intact, Normal Color, No Rash EKG INTERPRETATION EKG Date: 09/05/17 Time: 04:44 Rhythm: NSR Rate (Beats/Min): 71 [place]: Normal P-Wave: Present QRS: Normal ST-T: Normal QT: Normal Comparison: No Change (11/10/2016) Course - Vital Signs Last Recorded V/S: Last Vital Signs Temp 35.9 C 09/05/17 04:44 Pulse 74 09/05/17 04:44 Resp 15 09/05/17 04:44 BP 188/86 H 09/05/17 04:44 Pulse Ox 98 09/05/17 04:44 - Orders/Labs/Meds Orders: Active Orders 24 hr Category Date Time Status EKG Documentation Completion [RC] STAT Care 09/05/17 05:04 Active Labs: Laboratory Tests 09/05/17 09/05/17 Range/Units 05:35 05:35 WBC 5.83 (3.98-10.04) K/mm3 RBC 4.65 (3.98-5.22) M/mm3 Hgb 14.2 (11.2-15.7) gm/L Hct 40.9 (34.1-44.9) % MCV 88.0 (79.4-94.8) fl MCH 30.5 (25.6-32.2) pg MCHC 34.7 (32.2-35.5) g/dl RDW Std Deviation 39.9 (36.4-46.3) fL Plt Count 203 (182-369) K/mm3 MPV 9.6 (9.4-12.3) fl Neutrophils % (Manual) 64 H (40-60) % Band Neutrophils % 0 (0-10) % Lymphocytes % (Manual) 28 (20-40) % Atypical Lymphs % 0 % Monocytes % (Manual) 6 (2-10) % Eosinophils % (Manual) 1 (0.7-5.8) % Basophils % (Manual) 1 (0.1-1.2) Platelet Estimate Adequate RBC Morph Comment Normal Sodium 142 (136-145) mEq/L Potassium 4.0 (3.5-5.1) mEq/L Chloride 106 (98-107) mEq/L Carbon Dioxide 23 (21-32) mEq/L Anion Gap 17.0 H (5-15) BUN 14 (7-18) mg/dL Creatinine 0.9 (0.55-1.02) mg/dL Est Cr Clr Drug Dosing 53.10 mL/min Estimated GFR (MDRD) > 60 (>60) mL/min BUN/Creatinine Ratio 15.6 (14-18) Glucose 117 H (80-115) mg/dL Calcium 9.0 (8.5-10.1) mg/dL Total Bilirubin 1.3 H (0.2-1.0) mg/dL AST 30 (15-37) U/L ALT 57 (14-59) U/L Alkaline Phosphatase 62 (46-116) U/L Troponin I < 0.017 (0.00-0.056) ng/mL Total Protein 7.1 (6.4-8.2) g/dl Albumin 3.9 (3.4-5.0) g/dl Globulin 3.2 gm/dL Albumin/Globulin Ratio 1.2 (1-2) Lipase 231 (73-393) U/L Meds: Medications Discontinued Medications Generic Name Dose Route Start Last Admin Trade Name Freq PRN Reason Stop Dose Admin Al Hydroxide/Mg Hydroxide 30 0 ml 09/05/17 05:04 09/05/17 05:10 ml/ Lidocaine HCl 15 ml PO 09/05/17 05:05 45 ml ONETIME STA Administration Famotidine 20 mg 09/05/17 06:40 Pepcid PO 09/05/17 06:41 ONETIME ONE - Re-Assessments/Exams Free Text/Narrative Re-Assessment/Exam: 09/05/17 05:20 The patient was given a GI cocktail, and even after a minute or two, she is already feeling improvement of her symptoms. Her ECG is normal. Clearly, her epigastric pain that radiates to her lower central chest is due to GERD. Nevertheless, the patient would like me to run some cardiac tests. 09/05/17 05:48 Two-view chest radiograph appears to be grossly normal. Cardiac silhouette is within normal limits. No pulmonary vascular congestion. No pleural effusions. No focal infiltrate. No pneumothorax. Formal read per the Radiologist pending. 09/05/17 06:41 Test results discussed with the patient and her . Today's workup is entirely normal. As above, the patient is suffering from GERD. I am recommending that she start taking an H2 suleman once a day. If she continues to have symptoms, I am recommending that she increase it to twice a day, and if that is ineffective, that she then get an EGD before being started on a PPI. Departure - Departure Time of Disposition: 06:41 Disposition: Home, Self-Care 01 Condition: Good Clinical Impression: GERD (gastroesophageal reflux disease) - Discharge Information Referrals: Jocelynn Ruiz MD [Primary Care Provider] - Forms: ED Department Discharge Additional Instructions: You were seen in the emergency room for recurrent episodes of upper abdominal pain, sometimes radiating up into your chest. Workup in the ER included blood work, an ECG, and a chest x-ray. Your entire workup was normal. Your pain was not from your heart. Your symptoms improved after you drank a GI cocktail, confirming that your symptoms are due to GERD (acid reflux). We recommend that you start taking an H2 suleman, such as Pepcid (famotidine), Zantac (ranitidine), or Tagamet (cimetidine). Generics are just as good as the brand name. We recommend that you take one tablet a day, however, if you continue to have acid reflux symptoms, you can increase the dosage to one tablet twice a day. If you continue to have symptoms despite taking an H2 suleman twice a day, you need an EGD (scope of the stomach). Follow-up with your PCP, Dr. Cunningham, as needed. If any other problems, please do not hesitate to return to the ER. - My Orders Last 24 Hours: My Active Orders 09/05/17 05:04 EKG Documentation Completion [RC] STAT - Assessment/Plan Last 24 Hours: My Active Orders 09/05/17 05:04 EKG Documentation Completion [RC] STAT
--- NOTE | 2017-09-05 06:27 | CR ---
Chest: Two views of the chest were obtained. Comparison: Prior chest x-ray of 11/10/16. Heart size and mediastinum are within normal limits. Lungs are slightly hyperinflated compatible with emphysematous change. Nothing acute is seen within either lung. Bony structures are osteopenic. Mild scoliosis noted within the spine. Impression: 1. Possible emphysematous change. 2. Nothing acute is seen on two-view chest x-ray. Diagnostic code #2
[2017-09-05] MEDS ORDERED: Famotidine 20 MG Tab PO ONE (06:40)
== END 2017-09-05 06:55 | disposition home or self-care (01) ==
LOC: JD.ED 04:38
DX: K21.9 Gastro-esophageal reflux disease without esophagitis (principal); E78.00 Pure hypercholesterolemia, unspecified; I10 Essential (primary) hypertension; Z91.040 Latex allergy status; Z88.1 Allergy status to other antibiotic agents; Z79.899 Other long term (current) drug therapy; Z90.49 Acquired absence of other specified parts of digestive tract
CPT/HCPCS: 36415; 71046; 80053; 83690; 84484; 85025; 93005; 99285; A9270; 99283

== ENCOUNTER → 2018-02-13 | Day surgery (SDC) | payer MEDICARE, BC ==
[~2018-02-13] MED LIST changes: +Bupivacaine 0.25% 30 ML SDV ONE; -HYDROmorphone 1 MG/ML Syringe ONE; +Lactated Ringers 1,000 ML IV SCH; -Lactated Ringers 1,000 ML ONE; +Lidocaine 1% 30 ML SDV ONE; -Lidocaine 1% 4 ML ONE; +Lidocaine 1% 6 ML ONE; +Lidocaine 1%/Sod Bicarbonate in NS 8.4% 1 ML Syringe IDERM PRN; -Lidocaine 1%/Sod Bicarbonate in NS 8.4% 1 ML Syringe PRN; +Ondansetron 4 MG/2 ML SDV IVPUSH PRN; -Rocuronium 50 MG/5 ML Vial ONE; -ceFAZolin 1 GM Vial ONE; +fentaNYL 100 MCG/2 ML SDV ONE; -fentaNYL 250 MCG/5 ML SDV ONE
--- NOTE | 2018-02-13 07:08 | PCM.PREANE ---
Preanesthetic Assessment - Anesthesia/Transfusion/Family Hx Anesthesia History: Prior Anesthesia Without Reaction Family History of Anesthesia Reaction: No Transfusion History: No Prior Transfusion(s) Intubation History: Unknown - Review of Systems General: No Symptoms Pulmonary: No Symptoms Cardiovascular: Palpitations (history of palpiatations noted with past pain med use) Gastrointestinal: No Symptoms (GERD) Neurological: No Symptoms (Chronic SI joint pain, radicular pain of lower extremity history of, lumbar degenerative disc disease, chronic lumbar pain ( back injury at work in 2013)), Seizure (activity as a child/ last seizure at age 7.) - Physical Assessment NPO Status Date: 02/12/18 NPO Status Time: 21:00 Pulse: 71 O2 Sat by Pulse Oximetry: 99 Respiratory Rate: 16 Blood Pressure: 160/80 Temperature: 36.3 C Height: 1.63 m Weight: 68 kg ASA Class: 2 Mental Status: Alert & Oriented x3 Airway Class: Mallampati = 2 Dentition: Reports: Normal Dentition, Caries Thyro-Mental Finger Breadths: 3 Mouth Opening Finger Breadths: 3 ROM/Head Extension: Full Lungs: Clear to Auscultation, Normal Respiratory Effort Cardiovascular: Regular Rate, Regular Rhythm - Lab Values: Laboratory Last Values MRSA (PCR) Negative 02/11/18 10:33 All lab values reviewed and noted and within acceptable ranges to proceed with scheduled procedure. - Imaging/EKG Impressions: EKG: SR rate= 71 no changes noted from prior EKG. - Allergies Allergies/Adverse Reactions: Allergies Allergy/AdvReac Type Severity Reaction Status Date / Time latex Allergy Rash Verified 09/05/17 04:43 Latex, Natural Rubber Allergy Mild Rash, Verified 02/11/18 11:39 Itching scopolamine Allergy Nausea/Vomi Verified 02/11/18 11:40 ting tomato Allergy Rash, Verified 02/11/18 11:40 Itching erythromycin base AdvReac Nausea/Vomi Verified 02/11/18 11:40 ting - Anesthesia Plan Pre-Op Medication Ordered: None - Acknowledgements Anesthesia Type Planned: MAC (Local Mac) Pt an Appropriate Candidate for the Planned Anesthesia: Yes Alternatives and Risks of Anesthesia Discussed w Pt/Guardian: Yes Pt/Guardian Understands and Agrees with Anesthesia Plan: Yes PreAnesthesia Questionnaire HEENT History: Reports: Impaired Vision Other HEENT History: Patient wears eye glasses. 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 Patient reports her last seizure was when she was [age]. Psychiatric History: Reports: None Endocrine/Metabolic History: Reports: None Hematologic History: Reports: None Immunologic History: Reports: None Oncologic (Cancer) History: Reports: None Dermatologic History: Reports: None - Past Surgical History HEENT Surgical History: Reports: None Cardiovascular Surgical History: Reports: None GI Surgical History: Reports: Cholecystectomy Female Surgical History: Reports: Breast Biopsy Endocrine Surgical History: Reports: None Musculoskeletal Surgical History: Reports: Other (See Below) Other Musculoskeletal Surgeries/Procedures:: Foot Surgery - SUBSTANCE USE Smoking Status *Q: Never Smoker Recreational Drug Use History: No - HOME MEDS Home Medications: Home Meds Cholecalciferol (Vitamin D3) [Vitamin D3] 3,000 mg PO DAILY 11/10/16 [History] Gabapentin [Neurontin] 300 mg PO BEDTIME 11/10/16 [History] Multivit-Min/FA/Lycopene/Lut [Centrum Silver Tablet] 1 tab PO DAILY 11/10/16 [ History] traMADol [Ultram] 50 - 100 mg PO Q8H PRN 09/05/17 [History] L.acidoph,Paracasei, B.lactis [Probiotic] 1 cap PO DAILY 02/11/18 [History] Ranitidine HCl [Zantac 75] 150 mg PO BEDTIME 02/11/18 [History] - CURRENT (IN HOUSE) MEDS Current Meds: Current Medications Lactated Ringer's (Ringers, Lactated) 1,000 mls @ 125 mls/hr IV ASDIRECTED TOMAS Lidocaine/Sodium Bicarbonate (Buffered Lidocaine 1% In Ns 8.4%) 0.25 ml IDERM ONETIME PRN PRN Reason: Prior to IV Start Sodium Chloride (Saline Flush) 10 ml FLUSH ASDIRECTED PRN PRN Reason: Keep Vein Open
--- NOTE | 2018-02-13 09:14 | PCM.OPNOTE ---
- General Post-Op/Procedure Note Date of Surgery/Procedure: 02/13/18 Operative Procedure(s): left ring finger a1 rosalind release Pre Op Diagnosis: left ring finger stenosing tenosynovitis Post-Op Diagnosis: Same Anesthesia Technique: Local, MAC Primary Surgeon: Rodolfo López Anesthesia Provider: Odessa Kurtz EBL in mLs: 5 Complications: None Condition: Good
[2018-02-13 10:13] VITALS: BP 151/82
--- NOTE | 2018-02-18 12:38 | OR ---
DATE OF OPERATION: 02/13/2018 SURGEON: Rodolfo López MD OPERATION PERFORMED: Left ring finger A1 rosalind release. PREOPERATIVE DIAGNOSIS: Left ring finger stenosing tenosynovitis. POSTOPERATIVE DIAGNOSIS: Left ring finger stenosing tenosynovitis. ANESTHESIA: Local MAC. ANESTHESIA PROVIDER: Odessa Kurtz CRNA PROJECT DEVELOPER: None. ESTIMATED BLOOD LOSS: Less than 5 mL. COMPLICATIONS: None. CONDITION: Stable. DESCRIPTION OF PROCEDURE: The patient was identified in the preop holding area. Proper site was marked and identified by surgeon. The patient was taken back to the operating theater where after adequate anesthesia, the patient's left upper extremity was sterilely prepped and draped in the usual sterile fashion. OR time-out was performed. The patient received 2 g of IV Ancef. At this time, the left upper extremity was exsanguinated. We used an Esmarch as the tourniquet on the forearm. 1% lidocaine without epinephrine and 0.25% Marcaine without epinephrine was then used to anesthetize the incisional site directly over the A1 rosalind. At this time, a transverse incision was made. Blunt dissection was taken down to the A1 rosalind. Retractors were placed both medially and laterally to protect the neurovascular bundles. A Brown blade was then used to resect the A1 rosalind under direct visualization. A tenotomy scissors was then used to release both proximally and distally making sure to stay out of the A2 rosalind. The tendon was brought through the wound bed and was found to have no tendon adhesions. The patient was able to fully make a fist, open and close it without any triggering noted. At this time, adequate saline was irrigated through the wound. 4-0 nylon simple suture was used for closure of the skin. The patient had a sterile soft dressing applied and was sent to PACU in stable condition. MMODAL /[id number]
== END | disposition home or self-care (01) ==
LOC: JD.SDS 07:57
PROVIDERS: ATTEND Orthopaedic Surgery
DX: M65.842 Other synovitis and tenosynovitis, left hand (principal); M65.342 Trigger finger, left ring finger; E78.00 Pure hypercholesterolemia, unspecified; K21.9 Gastro-esophageal reflux disease without esophagitis; Z79.899 Other long term (current) drug therapy; Z88.1 Allergy status to other antibiotic agents; Z91.018 Allergy to other foods; Z88.8 Allergy status to other drugs, medicaments and biological substances; Z91.040 Latex allergy status
CPT/HCPCS: 26055; 87641; J2001; J2250; J2405; J3010; J3490; J7120; 01810; J2704

== ENCOUNTER 2019-01-26 11:39 | Day surgery (SDC) | payer MEDICARE, BC ==
[2019-01-26] MEDS: Polymyxin B/Trimethoprim 10 ML Bottle EYELF SCH ×4 (14:00→15:53)
[2019-01-26] MEDS: Brimonidine 0.2% Ophth Soln 15 ML Bottle EYELF SCH ×4 (14:05→15:53)
[2019-01-26] MEDS: Phenylephrine 2.5% Ophth Soln 2 ML Bot EYELF SCH ×6 (14:10→15:36)
[2019-01-26] MEDS: Tropicamide 1% Ophth Soln 15 ML Bottle EYELF SCH ×4 (14:15→14:55)
--- NOTE | 2019-01-26 14:22 | PCM.PREANE ---
Preanesthetic Assessment - Anesthesia/Transfusion/Family Hx Anesthesia History: Prior Anesthesia Without Reaction Family History of Anesthesia Reaction: No Transfusion History: No Prior Transfusion(s) Intubation History: Unknown - Review of Systems General: No Symptoms Pulmonary: No Symptoms Cardiovascular: Other (HTN, high cholesterol) Gastrointestinal: Other (controlled gerd) Neurological: Seizure (epilepsy as a child) Other: Reports: None - Physical Assessment NPO Status Date: 01/26/19 NPO Status Time: 01:00 Pulse: 67 O2 Sat by Pulse Oximetry: 99 Respiratory Rate: 16 Blood Pressure: 170/82 Vital Signs: Last Vital Signs Temp 36.6 C 01/26/19 13:55 Pulse 67 01/26/19 13:55 Resp 16 01/26/19 13:55 BP 170/82 H 01/26/19 13:55 Pulse Ox 99 01/26/19 13:55 Height: 1.63 m Weight: 71.668 kg ASA Class: 2 Mental Status: Alert & Oriented x3 Airway Class: Mallampati = 2 Dentition: Reports: Normal Dentition, Implants (3) Thyro-Mental Finger Breadths: 3 Mouth Opening Finger Breadths: 3 ROM/Head Extension: Full Lungs: Clear to Auscultation, Normal Respiratory Effort Cardiovascular: Regular Rate, Regular Rhythm - Allergies Allergies/Adverse Reactions: Allergies Allergy/AdvReac Type Severity Reaction Status Date / Time latex Allergy Rash Verified 02/13/18 08:42 Latex, Natural Rubber Allergy Mild Rash, Verified 02/13/18 08:42 Itching tomato Allergy Rash, Verified 02/13/18 08:42 Itching erythromycin base AdvReac Nausea/Vomi Verified 02/13/18 08:42 ting scopolamine AdvReac Nausea/Vomi Verified 02/13/18 11:48 ting - Anesthesia Plan Pre-Op Medication Ordered: None - Acknowledgements Anesthesia Type Planned: MAC Pt an Appropriate Candidate for the Planned Anesthesia: Yes Alternatives and Risks of Anesthesia Discussed w Pt/Guardian: Yes Pt/Guardian Understands and Agrees with Anesthesia Plan: Yes PreAnesthesia Questionnaire HEENT History: Reports: Impaired Vision Other HEENT History: Patient wears eye glasses. 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 Patient reports her last seizure was when she was [age]. Psychiatric History: Reports: None Endocrine/Metabolic History: Reports: None Hematologic History: Reports: None Immunologic History: Reports: None Oncologic (Cancer) History: Reports: None Dermatologic History: Reports: None - Past Surgical History HEENT Surgical History: Reports: None Cardiovascular Surgical History: Reports: None GI Surgical History: Reports: Cholecystectomy Female Surgical History: Reports: Breast Biopsy Endocrine Surgical History: Reports: None Musculoskeletal Surgical History: Reports: Other (See Below) Other Musculoskeletal Surgeries/Procedures:: Foot Surgery - HOME MEDS Home Medications: Home Meds Cholecalciferol (Vitamin D3) [Vitamin D3] 3,000 mg PO DAILY 11/10/16 [History] Gabapentin [Neurontin] 300 mg PO BEDTIME 11/10/16 [History] Multivit-Min/FA/Lycopene/Lut [Centrum Silver Tablet] 1 tab PO DAILY 11/10/16 [ History] traMADol [Ultram] 50 - 100 mg PO Q8H PRN 09/05/17 [History] L.acidoph,Paracasei, B.lactis [Probiotic] 1 cap PO DAILY 02/11/18 [History] Ranitidine HCl [Zantac 75] 150 mg PO BEDTIME 02/11/18 [History] - CURRENT (IN HOUSE) MEDS Current Meds: Current Medications Brimonidine Tartrate (Brimonidine Tartrate 0.2% Ophth Soln) 0 ml EYELF ASDIRECTED TOMAS Stop: 01/26/19 16:00 Last Admin: 01/26/19 14:05 Dose: 1 drop Cefuroxime Sodium (Zinacef) 0 mg EYELF ASDIRECTED TOMAS Stop: 01/26/19 16:00 Lidocaine HCl (Xylocaine-Mpf 1%) 0 ml INJECT ASDIRECTED TOMAS Stop: 01/26/19 16:00 Phenylephrine HCl (Yevgeniy-Synephrine 2.5% Ophth Soln) 0 ml EYELF ASDIRECTED TOMAS Stop: 01/26/19 16:00 Pilocarpine HCl (Pilocar 4% Ophth Soln) 0 ml EYELF ASDIRECTED TOMAS Stop: 01/26/19 16:00 Polymyxin/Trimethoprim Sulfate (Polytrim Ophth Soln) 0 ml EYELF ASDIRECTED TOMAS Stop: 01/26/19 16:00 Last Admin: 01/26/19 14:00 Dose: 1 drop Tetracaine HCl (Tetracaine 0.5% Steri-Unit Ghazal) 0 ml EYELF ASDIRECTED TOMAS Stop: 01/26/19 16:00 Tropicamide (Mydriacyl 1% Ophth Soln) 0 ml EYELF ASDIRECTED TOMAS Stop: 01/26/19 16:00
[2019-01-26] MEDS: Lidocaine 1% PF 2 ML SDV INJECT SCH ×2 (14:59→15:42)
[2019-01-26] MEDS: Cefuroxime 10 MG/ML SYRINGE EYELF SCH ×2 (15:00→15:52)
[2019-01-26] MEDS: Tetracaine HCl/PF 0.5% 4 ML Bottle EYELF SCH ×4 (15:00→15:44)
[2019-01-26] MEDS: Pilocarpine 4% Ophth Soln 15 ML Bot EYELF SCH ×2 (15:01→15:53)
[2019-01-26 16:11] VITALS: BP 138/72
== END 2019-01-26 16:06 | disposition home or self-care (01) ==
LOC: JD.SDS 11:39
PROVIDERS: ATTEND Ophthalmology
DX: H25.813 Combined forms of age-related cataract, bilateral (principal); H16.103 Unspecified superficial keratitis, bilateral; H16.223 Keratoconjunctivitis sicca, not specified as Sjogren's, bilateral; H02.834 Dermatochalasis of left upper eyelid; H02.831 Dermatochalasis of right upper eyelid; E78.00 Pure hypercholesterolemia, unspecified; G40.909 Epilepsy, unspecified, not intractable, without status epilepticus; I10 Essential (primary) hypertension; K21.9 Gastro-esophageal reflux disease without esophagitis; M19.90 Unspecified osteoarthritis, unspecified site; Z91.018 Allergy to other foods; Z91.040 Latex allergy status; Z88.1 Allergy status to other antibiotic agents; Z88.8 Allergy status to other drugs, medicaments and biological substances; Z79.899 Other long term (current) drug therapy
CPT/HCPCS: 66984; J0697; J2001

== ENCOUNTER 2019-12-03 12:22 | Emergency (ER) | payer MEDICARE, BC ==
[2019-12-03 12:38] VITALS: BP 175/84; PULSE 87
[2019-12-03] MEDS ORDERED: Sodium Chloride 0.9% 10 ML Syringe FLUSH PRN ×2 (12:54→14:11)
[2019-12-03] MEDS ORDERED: Ketorolac 30 MG/ML SDV IVPUSH ONE (12:54)
[2019-12-03] MEDS ORDERED: Sodium Chloride 0.9% 1,000 ML IV SCH (13:00)
[2019-12-03] MEDS ORDERED: HYDROmorphone 0.5 MG/0.5 ML Syringe IVPUSH ONE (13:53)
[2019-12-03] MEDS ORDERED: Iopamidol 612 MG/ML 100 ML Bottle IVPUSH ONE (14:11)
--- NOTE | 2019-12-03 14:54 | EDM.PDOC ---
ED HPI GENERAL MEDICAL PROBLEM - General Chief Complaint: Abdominal Pain Stated Complaint: LT SIDE PAIN Time Seen by Provider: 12/03/19 12:32 Source of Information: Reports: Patient History Limitations: Reports: No Limitations - History of Present Illness INITIAL COMMENTS - FREE TEXT/NARRATIVE: Patient is a 69-year-old female who presents with complaints of left lower quadrant abdominal pain that radiates to her left flank. Patient states symptoms initially began yesterday with what she describes as "pelvic pressure " and urinary frequency. She states that she started taking Azo for the symptoms and that did help. This morning however the pain seems to have worsened and is now more so in the left lower quadrant of her abdomen and moves up into her back. She describes the pain as constant, however, does wax and wane. She has had no fever, chills, nausea, vomiting, or diarrhea. She states her bowel movements have been regular and normal for her. She does not have a history of kidney stones. She denies any burning with urination. Left Abdomen Pain Score (Numeric/FACES): 8 - Related Data Allergies Allergy/AdvReac Type Severity Reaction Status Date / Time aspirin Allergy Cannot Verified 02/25/19 14:33 Remember latex Allergy Rash Verified 02/25/19 14:33 Latex, Natural Rubber Allergy Mild Rash, Verified 02/25/19 14:33 Itching tomato Allergy Rash, Verified 02/25/19 14:33 Itching erythromycin base AdvReac Nausea/Vomi Verified 02/25/19 14:33 ting scopolamine AdvReac Nausea/Vomi Verified 02/25/19 14:33 ting Home Meds: Home Meds Cholecalciferol (Vitamin D3) [Vitamin D3] 3,000 mg PO DAILY 11/10/16 [History] Gabapentin [Neurontin] 600 mg PO BEDTIME 11/10/16 [History] Multivit-Min/FA/Lycopen/Lutein [Centrum Silver Tablet] 1 tab PO DAILY 11/10/16 [ History] L.acidoph,Paracasei, B.lactis [Probiotic] 1 cap PO DAILY 02/11/18 [History] Rosuvastatin [Crestor] 5 mg PO BEDTIME 02/26/19 [History] Acetaminophen/HYDROcodone [Niotaze 325-5 MG] 1 tab PO Q4H PRN #10 tablet 12/03/19 [Rx] Ciprofloxacin HCl [Cipro] 500 mg PO BID #14 tablet 12/03/19 [Rx] Ondansetron [Zofran ODT] 4 mg PO Q6H PRN #10 tab.dis 12/03/19 [Rx] Pantoprazole Sodium [Protonix] 20 mg PO DAILY 12/03/19 [History] Past Medical History HEENT History: Reports: Impaired Vision Other HEENT History: Patient wears eye glasses. Cardiovascular History: Reports: High Cholesterol, Other (See Below) Other Cardiovascular History: Increased Cholestrol, Palpitations Respiratory History: Reports: None Gastrointestinal History: Reports: GERD Other Gastrointestinal History: symptomatic cholelithiasis, gallstones, increased bilirubin LEATHER CLEANER History: Reports: Other (See Below) Other LEATHER CLEANER History: Hot flashes, Breast Biopsy Musculoskeletal History: Reports: Arthritis, Back Pain, Chronic Other Musculoskeletal History: Back injury 2013 resulting in chronic pain ( patient uses Gabapentin and Tramadol for management of pain0; SI Joint Pain, Lumbar DDD, Radicular Pain Lower Extremity Neurological History: Reports: Seizure, Other (See Below) Other Neuro History: Patient reports she has a history of epilepsy. Patient reports her last seizure was when she was [age]. Psychiatric History: Reports: None Endocrine/Metabolic History: Reports: None Hematologic History: Reports: None Immunologic History: Reports: None Oncologic (Cancer) History: Reports: None Dermatologic History: Reports: None - Past Surgical History Head Surgeries/Procedures: Reports: None HEENT Surgical History: Reports: None Cardiovascular Surgical History: Reports: None GI Surgical History: Reports: Cholecystectomy Female Surgical History: Reports: Breast Biopsy Endocrine Surgical History: Reports: None Musculoskeletal Surgical History: Reports: Other (See Below) Other Musculoskeletal Surgeries/Procedures:: Foot Surgery Social & Family History - Family History Cardiac: Reports: Afib - Tobacco Use Smoking Status *Q: Never Smoker - Caffeine Use Caffeine Use: Reports: Soda - Recreational Drug Use Recreational Drug Use: No - Living Situation & Occupation Living situation: Reports: , with Spouse Occupation: Employed ([employer]) ED ROS GENERAL - Review of Systems Review Of Systems: See Below Constitutional: Denies: Fever, Chills, Weakness HEENT: Reports: No Symptoms Respiratory: Reports: No Symptoms. Denies: Shortness of Breath, Cough Cardiovascular: Reports: No Symptoms Endocrine: Reports: No Symptoms GI/Abdominal: Reports: Abdominal Pain (Left lower quadrant) ED EXAM, GI/ABD - Physical Exam Exam: See Below Exam Limited By: No Limitations General Appearance: Alert, WD/WN, Mild Distress Respiratory/Chest: No Respiratory Distress, Lungs Clear, Normal Breath Sounds, No Accessory Muscle Use, Chest Non-Tender Cardiovascular: Normal Peripheral Pulses, Regular Rate, Rhythm, No Edema, No Gallop, No JVD, No Murmur, No Rub GI/Abdominal Exam: Normal Bowel Sounds, Soft, No Organomegaly, No Distention, No Abnormal Bruit, No Mass, Pelvis Stable, Tender (Left lower quadrant). No: Guarding, Rigid, Rebound Back Exam: Normal Inspection, Full Range of Motion, CVA Tenderness (L) Neurological: Alert, Oriented, CN II-XII Intact, Normal Cognition, Normal Gait, Normal Reflexes, No Motor/Sensory Deficits Psychiatric: Normal Affect, Normal Mood Skin Exam: Warm, Dry, Intact, Normal Color, No Rash Course - Vital Signs Last Recorded V/S: Last Vital Signs Temp 97.4 F 12/03/19 12:36 Pulse 87 12/03/19 12:36 Resp 20 12/03/19 12:36 BP 175/84 H 12/03/19 12:36 Pulse Ox 95 12/03/19 12:36 - Orders/Labs/Meds Orders: Active Orders 24 hr Category Date Time Status Peripheral IV Care [RC] . DIRECTED Care 12/03/19 12:55 Active Strain Urine [RC] ASDIRECTED Care 12/03/19 15:27 Active CULTURE URINE [RM] Stat Lab 12/03/19 13:00 Received Sodium Chloride 0.9% [Normal Saline] 1,000 ml Med 12/03/19 13:00 Active IV ASDIRECTED Sodium Chloride 0.9% [Saline Flush] Med 12/03/19 12:54 Active 10 ml FLUSH ASDIRECTED PRN Sodium Chloride 0.9% [Saline Flush] Med 12/03/19 14:11 Active 10 ml FLUSH ONETIME PRN Peripheral IV Insertion Adult [OM.PC] Stat Oth 12/03/19 12:54 Ordered Medication Orders Sodium Chloride (Normal Saline) 1,000 mls @ 150 mls/hr IV ASDIRECTED TOMAS Last Admin: 12/03/19 13:09 Dose: 150 mls/hr Sodium Chloride (Saline Flush) 10 ml FLUSH ASDIRECTED PRN PRN Reason: Keep Vein Open Last Admin: 12/03/19 13:09 Dose: 10 ml Sodium Chloride (Saline Flush) 10 ml FLUSH ONETIME PRN PRN Reason: Keep Vein Open Last Admin: 12/03/19 14:27 Dose: 10 ml Labs: Laboratory Tests 12/03/19 12/03/19 12/03/19 Range/Units 13:00 13:05 13:05 WBC 6.97 (3.98-10.04) K/mm3 RBC 4.53 (3.98-5.22) M/mm3 Hgb 14.2 (11.2-15.7) gm/dl Hct 40.8 (34.1-44.9) % MCV 90.1 (79.4-94.8) fl MCH 31.3 (25.6-32.2) pg MCHC 34.8 (32.2-35.5) g/dl RDW Std Deviation 41.2 (36.4-46.3) fL Plt Count 194 (182-369) K/mm3 MPV 9.7 (9.4-12.3) fl Neut % (Auto) 73.7 H (34.0-71.1) % Lymph % (Auto) 15.5 L (19.3-51.7) % [place] % (Auto) 9.0 (4.7-12.5) % Eos % (Auto) 1.1 (0.7-5.8) Baso % (Auto) 0.4 (0.1-1.2) % Neut # (Auto) 5.13 (1.56-6.13) K/mm3 Lymph # (Auto) 1.08 L (1.18-3.74) K/mm3 [place] # (Auto) 0.63 H (0.24-0.36) K/mm3 Eos # (Auto) 0.08 (0.04-0.36) K/mm3 Baso # (Auto) 0.03 (0.01-0.08) K/mm3 Sodium 140 (136-145) mEq/L Potassium 3.9 (3.5-5.1) mEq/L Chloride 105 (98-107) mEq/L Carbon Dioxide 24 (21-32) mEq/L Anion Gap 14.9 (5-15) BUN 10 (7-18) mg/dL Creatinine 1.1 H (0.55-1.02) mg/dL Est Cr Clr Drug Dosing 42.27 mL/min Estimated GFR (MDRD) 49 (>60) mL/min BUN/Creatinine Ratio 9.1 L (14-18) Glucose 115 (80-115) mg/dL Calcium 9.1 (8.5-10.1) mg/dL Total Bilirubin 1.7 H (0.2-1.0) mg/dL AST 38 H (15-37) U/L ALT 80 H (14-59) U/L Alkaline Phosphatase 65 (46-116) U/L C-Reactive Protein 0.4 (<1.0) mg/dL Total Protein 7.1 (6.4-8.2) g/dl Albumin 3.9 (3.4-5.0) g/dl Globulin 3.2 gm/dL Albumin/Globulin Ratio 1.2 (1-2) Urine Color Jailyn H (Yellow) Urine Appearance Slt cloudy H (Clear) Urine pH 6.0 (5.0-8.0) Ur Specific [place] > or = 1.030 (1.005-1.030) Urine Protein 1+ H (Negative) Urine Glucose (UA) Negative (Negative) Urine Ketones Trace H (Negative) Urine Occult Blood 3+ H (Negative) Urine Nitrite Positive H (Negative) Urine Bilirubin Negative (Negative) Urine Urobilinogen 1.0 (0.2-1.0) Ur Leukocyte Esterase Negative (Negative) Urine RBC >100 H (0-5) /hpf Urine WBC 0-5 (0-5) /hpf Ur Squamous Epith Cells 0-5 (0-5) /hpf Amorphous Sediment Few H (NOT SEEN) /hpf Urine Bacteria Moderate H (FEW) /hpf Urine Mucus Not seen (FEW) /hpf Meds: Medications Generic Name Dose Route Start Last Admin Trade Name Freq PRN Reason Stop Dose Admin Sodium Chloride 1,000 mls @ 150 mls/hr 12/03/19 13:00 12/03/19 13:09 Normal Saline IV 150 mls/hr ASDIRECTED TOMAS Administration Sodium Chloride 10 ml 12/03/19 12:54 12/03/19 13:09 Saline Flush FLUSH 10 ml ASDIRECTED PRN Administration Keep Vein Open Sodium Chloride 10 ml 12/03/19 14:11 12/03/19 14:27 Saline Flush FLUSH 10 ml ONETIME PRN Administration Keep Vein Open Discontinued Medications Generic Name Dose Route Start Last Admin Trade Name Jennifer PRN Reason Stop Dose Admin Hydromorphone HCl 0.5 mg 12/03/19 13:53 12/03/19 14:04 Dilaudid IVPUSH 12/03/19 13:54 0.5 mg ONETIME ONE Administration Iopamidol 100 ml 12/03/19 14:11 12/03/19 14:27 Isovue-300 (61%) IVPUSH 12/03/19 14:12 100 ml ONETIME ONE Administration Ketorolac Tromethamine 30 mg 12/03/19 12:54 12/03/19 13:09 Toradol IVPUSH 12/03/19 12:55 30 mg ONETIME ONE Administration - Re-Assessments/Exams Free Text/Narrative Re-Assessment/Exam: 12/03/19 1355 Hematology was grossly unremarkable. WBCs were normal. Kidney function is normal. CRP was normal. Urinalysis was significant for 1+ protein, trace ketones, 3+ occult blood, positive nitrite, greater than 100 RBCs, and moderate bacteria. Based on these results, I feel there is a definite possibility the patient could have a kidney stone. While she does not have leukocyte esterase or WBCs present, she does have nitrites which could also be concerning for pyelonephritis. We will do a CT abdomen with and without contrast to differentiate between a kidney stone and a pyelonephritis. Patient was having some increased pain. I ordered Dilaudid 0.5 mg. 12/03/19 15:17 CT was positive for a 4 mm obstructing stone within the distal left ureter located approximately 3 to 4 cm from the UVJ. Since patient was nitrite positive I called and spoke with the urologist on-call, Dr. Garza. He indicated that the gross hematuria can cause a false positive on the nitrates within the urine. He did recommend however that we send the urine for culture and treat with Cipro 500 mg twice daily for 7 days. He indicated that 90% of the time stones of this size will pass and that without any signs of infection such as fever, elevated white count, leukocyte esterase, or WBCs in her urine no surgical intervention is needed. Discussed these findings with the patient as well as return precautions. We will send a prescription for Cipro as well as Niotaze for pain to [facility]. She will provided with a urine strainer. Educated that if she is able to capture the stone, she may return it to her primary care provider for pathology. Discharge instructions as documented. Departure - Departure Time of Disposition: 15:20 Disposition: Home, Self-Care 01 Condition: Fair Clinical Impression: Kidney stone on left side - Discharge Information *PRESCRIPTION DRUG MONITORING PROGRAM REVIEWED*: Yes *COPY OF PRESCRIPTION DRUG MONITORING REPORT IN PATIENT [place]: No Prescriptions: Acetaminophen/HYDROcodone [Niotaze 325-5 MG] 1 tab PO Q4H PRN #10 tablet PRN Reason: Pain Ciprofloxacin HCl [Cipro] 500 mg PO BID #14 tablet Ondansetron [Zofran ODT] 4 mg PO Q6H PRN #10 tab.dis PRN Reason: Nausea/Vomiting Instructions: Kidney Stones, [id number] Referrals: Jocelynn Ruiz MD [Primary Care Provider] - Forms: ED Department Discharge Additional Instructions: You were seen in the emergency department today for left sided abdominal pain and low back pain. Your work-up included blood work, urinalysis, and a CT scan of your abdomen pelvis. Your work-up was consistent with a diagnosis of a kidney stone. CT scan showed a 4 mm kidney stone in the left ureter. As we discussed, your urine was positive for nitrates which could be an indication of infection, however all the other infectious markers in your urine were normal. We are going to treat with Cipro which is an antibiotic in case there is an underlying infection. The urine has been sent for culture. If this should grow out a bacteria that is not susceptible to the Cipro, you will be notified. Recommend that you strain your urine each time that you go. If you are able to capture the stone, recommend that you take it to your primary care provider for pathology. If you should develop any significantly worsening pain, fever, chills, nausea, or vomiting, I would recommend that you return to the emergency department. Sepsis Event Note - Evaluation Sepsis Screening Result: No Definite Risk - Focused Exam Vital Signs: Vital Signs Temp Pulse Resp BP Pulse Ox 12/03/19 12:36 97.4 F 87 20 175/84 H 95 Date Exam was Performed: 12/03/19 Time Exam was Performed: 15:56 - My Orders Last 24 Hours: My Active Orders 12/03/19 12:54 Sodium Chloride 0.9% [Saline Flush] 10 ml FLUSH ASDIRECTED PRN Peripheral IV Insertion Adult [OM.PC] Stat 12/03/19 12:55 Peripheral IV Care [RC] . DIRECTED 12/03/19 13:00 CULTURE URINE [RM] Stat Sodium Chloride 0.9% [Normal Saline] 1,000 ml IV ASDIRECTED 12/03/19 14:11 Sodium Chloride 0.9% [Saline Flush] 10 ml FLUSH ONETIME PRN 12/03/19 15:27 Strain Urine [RC] ASDIRECTED - Assessment/Plan Last 24 Hours: My Active Orders 12/03/19 12:54 Sodium Chloride 0.9% [Saline Flush] 10 ml FLUSH ASDIRECTED PRN Peripheral IV Insertion Adult [OM.PC] Stat 12/03/19 12:55 Peripheral IV Care [RC] . DIRECTED 12/03/19 13:00 CULTURE URINE [RM] Stat Sodium Chloride 0.9% [Normal Saline] 1,000 ml IV ASDIRECTED 12/03/19 14:11 Sodium Chloride 0.9% [Saline Flush] 10 ml FLUSH ONETIME PRN 12/03/19 15:27 Strain Urine [RC] ASDIRECTED
--- NOTE | 2019-12-03 14:57 | CT ---
CT abdomen and pelvis (without and with intravenous contrast) Technique: Noncontrast axial images were obtained initially obtained from above the dome diaphragm inferiorly through the pubic symphysis. Intravenous contrast not utilized. No oral contrast has been given. Intravenous contrast then given an imaging obtained at 40 seconds through the abdomen. 5 minute delayed images were then obtained through the abdomen and pelvis. Comparison: No previous study is available. Findings: Dilated left renal pelvis and collecting system is seen as well as dilated left ureter. These findings are caused by an obstructing 4 mm calculus within the distal left ureter located approximately 3-4 cm from the UVJ. On contrast images there is contrast excretion into the dilated left collecting system with a small amount of extravasation of contrast compatible with obstruction from the distal left ureteral stone. Other findings: Cyst with noted within the left kidney measuring 1.5 cm. Fatty infiltration is noted within the liver. Visualized lung bases show nothing acute. Spleen appears within normal limits. Left adrenal gland shows a nodulel measuring about 2.0 cm. This is most likely benign. Pancreas appears within normal limits. Surgical clips seen from prior cholecystectomy. Aorta shows no aneurysm. No retroperitoneal adenopathy is seen. Appendix is seen which is normal. No pelvic mass or adenopathy is seen. No free fluid is seen. Diverticuli are seen within the sigmoid colon without diverticulitis. Bone window settings were reviewed which show scattered degenerative change throughout the spine. No acute osseous finding is appreciated. Impression: 1. 4 mm obstructing stone within the distal left ureter located approximately 3-4 cm from the UVJ. 2. Cyst within the left kidney believed to be incidental. 3. 2 cm left adrenal mass also believed to be incidental. Diagnostic code #3 This report was dictated in MDT
== END 2019-12-03 15:45 | disposition home or self-care (01) ==
LOC: JD.ED 12:22
DX: N20.2 Calculus of kidney with calculus of ureter (principal); K21.9 Gastro-esophageal reflux disease without esophagitis; E78.00 Pure hypercholesterolemia, unspecified; Z88.6 Allergy status to analgesic agent; Z91.040 Latex allergy status; Z91.018 Allergy to other foods; Z88.1 Allergy status to other antibiotic agents; Z79.899 Other long term (current) drug therapy
CPT/HCPCS: 36415; 74178; 80053; 81001; 85025; 86140; 87086; 96374; 96375; 99284; J1170; J1885; J7030; Q9967

== ENCOUNTER 2020-05-19 08:32 | Day surgery (SDC) | payer MEDICARE, BC ==
--- NOTE | 2020-05-19 06:16 | PCM.PREANE ---
<Odessa Kurtz - Last Filed: 05/19/20 06:10> Preanesthetic Assessment - Anesthesia/Transfusion/Family Hx Anesthesia History: Prior Anesthesia Without Reaction Family History of Anesthesia Reaction: No Transfusion History: No Prior Transfusion(s) Intubation History: Unknown - Review of Systems General: No Symptoms (History of opioid maintenace monitoring therapy) Cardiovascular: No Symptoms (History of PAC's, history of elevated cholesterol), Palpitations Gastrointestinal: No Symptoms (GERD) Neurological: No Symptoms (Lower back pain/History of degenerative disk disease of lumbar spine), Seizure (History of epilepsy in childhood- 5 years old), Tingling (chronic right SI joint paini) Other: Reports: Liver Problems (hepatic steatosia) - Physical Assessment NPO Status Date: 05/18/20 Vital Signs: HR= Sat= Temp= Resp= B/P= Height: 1.63 m ASA Class: 2 Mental Status: Alert & Oriented x3 Airway Class: Mallampati = 1 Dentition: Reports: Normal Dentition, Caries Thyro-Mental Finger Breadths: 3 Mouth Opening Finger Breadths: 3 ROM/Head Extension: Full - Lab Values: All labs reviewed and noted and within acceptable ranges to proceed with scheduled procedure. - Imaging/EKG Impressions: EKG: NSR rate=71, no ischemic changes ( ) - Allergies Allergies/Adverse Reactions: Allergies Allergy/AdvReac Type Severity Reaction Status Date / Time latex Allergy Rash Verified 05/19/20 09:17 Latex, Natural Rubber Allergy Mild Rash, Verified 05/19/20 09:17 Itching tomato Allergy Rash, Verified 05/19/20 09:17 Itching erythromycin base AdvReac Nausea/Vomi Verified 05/19/20 09:17 ting scopolamine AdvReac Nausea/Vomi Verified 05/19/20 09:17 ting - Anesthesia Plan Pre-Op Medication Ordered: None - Acknowledgements Anesthesia Type Planned: General Anesthesia Pt an Appropriate Candidate for the Planned Anesthesia: Yes Alternatives and Risks of Anesthesia Discussed w Pt/Guardian: Yes Pt/Guardian Understands and Agrees with Anesthesia Plan: Yes PreAnesthesia Questionnaire HEENT History: Reports: Impaired Vision Other HEENT History: Patient wears eye glasses. 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 Patient reports her last seizure was when she was [age]. Psychiatric History: Reports: None Endocrine/Metabolic History: Reports: None Hematologic History: Reports: None Immunologic History: Reports: None Oncologic (Cancer) History: Reports: None Dermatologic History: Reports: None - Past Surgical History Head Surgeries/Procedures: Reports: None HEENT Surgical History: Reports: Cataract Surgery Cardiovascular Surgical History: Reports: None Respiratory Surgical History: Reports: None GI Surgical History: Reports: Cholecystectomy, Colonoscopy, EGD Female Surgical History: Reports: Breast Biopsy Male Surgical History: Reports: None Endocrine Surgical History: Reports: None Neurological Surgical History: Reports: None Musculoskeletal Surgical History: Reports: Other (See Below) Other Musculoskeletal Surgeries/Procedures:: Foot Surgery Oncologic Surgical History: Reports: Biopsy of Breast Dermatological Surgical History: Reports: None - SUBSTANCE USE Smoking Status *Q: Never Smoker Recreational Drug Use History: No - HOME MEDS Home Medications: Home Meds Cholecalciferol (Vitamin D3) [Vitamin D3] 3,000 mg PO DAILY 11/10/16 [History] Gabapentin [Neurontin] 600 mg PO BEDTIME 11/10/16 [History] Multivit-Min/FA/Lycopen/Lutein [Centrum Silver Tablet] 1 tab PO DAILY 11/10/16 [History] L.acidoph,Paracasei, B.lactis [Probiotic] 1 cap PO DAILY 02/11/18 [History] Rosuvastatin [Crestor] 5 mg PO BEDTIME 02/26/19 [History] Lidocaine 5% [Lidoderm 5%] 1 dose TOP Q12H PRN 05/18/20 [History] Acetaminophen/HYDROcodone [[place] 325-5 MG] 1 - 2 tab PO Q6H PRN #20 tablet 05/19/20 [Rx] Aspirin [Aspirin EC] 81 mg PO BID #80 tablet. 05/19/20 [Rx] Famotidine [Pepcid] 20 mg PO BID #80 tab 05/19/20 [Rx] Pantoprazole Sodium [Protonix] 20 mg PO BID #80 05/19/20 [Rx] <ChoeMirian - Last Filed: 05/19/20 09:22> Preanesthetic Assessment - Anesthesia/Transfusion/Family Hx Anesthesia History: Prior Anesthesia Without Reaction Family History of Anesthesia Reaction: No Transfusion History: No Prior Transfusion(s) Intubation History: Unknown - Review of Systems General: No Symptoms Pulmonary: No Symptoms Cardiovascular: No Symptoms, Palpitations Gastrointestinal: No Symptoms Neurological: No Symptoms, Seizure, Tingling Other: Reports: Liver Problems - Physical Assessment Vital Signs: 97.3 16 460/80 73 97% ASA Class: 2 Mental Status: Alert & Oriented x3 Airway Class: Mallampati = 2 Dentition: Reports: Normal Dentition, Caries ROM/Head Extension: Full Lungs: Clear to Auscultation, Normal Respiratory Effort Cardiovascular: Regular Rate, Regular Rhythm - Lab Values: Laboratory Last Values SARS-CoV-2 (PCR) Not detected (NOT DETECT) 05/16/20 09:15 - Anesthesia Plan Pre-Op Medication Ordered: None - Acknowledgements Anesthesia Type Planned: General Anesthesia Pt an Appropriate Candidate for the Planned Anesthesia: Yes Alternatives and Risks of Anesthesia Discussed w Pt/Guardian: Yes Pt/Guardian Understands and Agrees with Anesthesia Plan: Yes PreAnesthesia Questionnaire - CURRENT (IN HOUSE) MEDS Current Meds: Current Medications Epinephrine HCl (Adrenalin) 3 mg IRR ONETIME TOMAS Stop: 05/19/20 16:00 Lactated Ringer's (Ringers, Lactated) 1,000 mls @ 125 mls/hr IV ASDIRECTED TOMAS Stop: 05/19/20 23:00 Last Admin: 05/19/20 08:55 Dose: 125 mls/hr Documented by: Lidocaine/Sodium Bicarbonate (Buffered Lidocaine 1% In Ns 8.4%) 0.25 ml IDERM ONETIME PRN PRN Reason: Prior to IV Start Stop: 05/19/20 18:00 Last Admin: 05/19/20 09:05 Dose: 0.25 ml Documented by: Sodium Chloride (Saline Flush) 10 ml FLUSH ASDIRECTED PRN PRN Reason: Keep Vein Open Stop: 10/08/20 18:00 Discontinued Medications Bupivacaine HCl (Sensorcaine-Mpf 0.25%) Confirm Administered Dose 10 ml .ROUTE .STK-MED ONE Stop: 05/19/20 08:42 Cefazolin Sodium (Ancef) Confirm Administered Dose 2 gm .ROUTE .STK-MED ONE Stop: 05/19/20 05:55 Dexamethasone (Dexamethasone) Confirm Administered Dose 20 mg .ROUTE .STK-MED ONE Stop: 05/19/20 05:55 Dexamethasone (Dexamethasone) Confirm Administered Dose 20 mg .ROUTE .STK-MED ONE Stop: 05/19/20 09:19 Fentanyl (Sublimaze) Confirm Administered Dose 250 mcg .ROUTE .STK-MED ONE Stop: 05/19/20 05:56 Fentanyl (Sublimaze) Confirm Administered Dose 100 mcg .ROUTE .STK-MED ONE Stop: 05/19/20 09:18 Lidocaine HCl (Xylocaine-Mpf 1%) Confirm Administered Dose 4 mls @ as directed .ROUTE .STK-MED ONE Stop: 05/19/20 05:55 Lactated Ringer's (Ringers, Lactated) Confirm Administered Dose 1,000 mls @ as directed .ROUTE .STK-MED ONE Stop: 05/19/20 05:55 Lidocaine HCl (Xylocaine-Mpf 1%) Confirm Administered Dose 4 mls @ as directed .ROUTE .STK-MED ONE Stop: 05/19/20 09:19 Ketorolac Tromethamine (Toradol) Confirm Administered Dose 30 mg .ROUTE .STK-MED ONE Stop: 05/19/20 05:55 Ketorolac Tromethamine (Toradol) Confirm Administered Dose 30 mg .ROUTE .STK-MED ONE Stop: 05/19/20 09:19 Midazolam HCl (Versed 1 Mg/Ml) Confirm Administered Dose 2 mg .ROUTE .STK-MED ONE Stop: 05/19/20 05:56 Midazolam HCl (Versed 1 Mg/Ml) Confirm Administered Dose 2 mg .ROUTE .STK-MED ONE Stop: 05/19/20 09:18 Ondansetron HCl (Zofran) Confirm Administered Dose 4 mg .ROUTE .STK-MED ONE Stop: 05/19/20 05:55 Ondansetron HCl (Zofran) Confirm Administered Dose 4 mg .ROUTE .STK-MED ONE Stop: 05/19/20 09:19 Propofol (Diprivan 20 Ml) Confirm Administered Dose 200 mg .ROUTE .STK-MED ONE Stop: 05/19/20 05:56 Propofol (Diprivan 20 Ml) Confirm Administered Dose 200 mg .ROUTE .STK-MED ONE Stop: 05/19/20 09:18 Rocuronium [place] (Zemuron) Confirm Administered Dose 50 mg .ROUTE .STK-MED ONE Stop: 05/19/20 05:57
[~2020-05-19 08:32] MED LIST changes: -Bupivacaine 0.25% 30 ML SDV ONE; +Dexamethasone 4 MG/ML 5 ML MDV ONE; +EPINEPHrine 1 MG/ML 30 ML MDV IRR SCH; +Ketorolac 30 MG/ML SDV ONE; +Lactated Ringers 1,000 ML ONE; +Lidocaine 1% 0 ML ONE; -Lidocaine 1% 30 ML SDV ONE; -Lidocaine 1% 6 ML ONE; -Ondansetron 4 MG/2 ML SDV IVPUSH PRN; +Rocuronium 50 MG/5 ML Vial ONE; +ceFAZolin 1 GM Vial ONE; -fentaNYL 100 MCG/2 ML SDV ONE; +fentaNYL 250 MCG/5 ML SDV ONE
[2020-05-19] MEDS ORDERED: Bupivacaine 0.25% 10 ML SDV ONE (08:41)
[2020-05-19] MEDS ORDERED: fentaNYL 100 MCG/2 ML SDV ONE (09:17)
[2020-05-19] MEDS ORDERED: Midazolam 1 MG/ML 2 ML SDV ONE (09:17)
[2020-05-19] MEDS ORDERED: Propofol 200 MG/20 ML SDV ONE (09:17)
[2020-05-19] MEDS ORDERED: Dexamethasone 4 MG/ML 5 ML MDV ONE (09:18)
[2020-05-19] MEDS ORDERED: Ketorolac 30 MG/ML SDV ONE (09:18)
[2020-05-19] MEDS ORDERED: Ondansetron 4 MG/2 ML SDV ONE (09:18)
[2020-05-19] MEDS ORDERED: Lidocaine 1% 4 ML ONE (09:18)
[2020-05-19] MEDS ORDERED: HYDROmorphone 0.5 MG/0.5 ML Syringe IVPUSH PRN (09:23)
[2020-05-19] MEDS ORDERED: fentaNYL 100 MCG/2 ML SDV IVPUSH PRN (09:23)
[2020-05-19] MEDS ORDERED: Ondansetron 4 MG/2 ML SDV IVPUSH PRN (09:23)
--- NOTE | 2020-05-19 11:03 | PCM.POSTAN ---
POST ANESTHESIA ASSESSMENT - MENTAL STATUS Mental Status: Alert, Oriented - VITAL SIGNS Vital Signs: Last Vital Signs Temp 36.1 C 05/19/20 10:55 Pulse 71 05/19/20 10:55 Resp 16 05/19/20 10:55 BP 143/69 H 05/19/20 10:55 Pulse Ox 99 05/19/20 10:55 - RESPIRATORY Respiratory Status: Respiratory Rate WNL, Airway Patent, O2 Saturation Stable - CARDIOVASCULAR CV Status: Pulse Rate WNL, Blood Pressure Stable - GASTROINTESTINAL GI Status: No Symptoms - PAIN Pain Score: 0 - POST OP HYDRATION Hydration Status: Adequate & Stable
--- NOTE | 2020-05-19 11:04 | PCM48HPAN ---
Post Anesthesia Note - EVALUATION WITHIN 48HRS OF ANESTHETIC Vital Signs in Normal Range: Yes Patient Participated in Evaluation: Yes Respiratory Function Stable: Yes Airway Patent: Yes Cardiovascular Function Stable: Yes Hydration Status Stable: Yes Pain Control Satisfactory: Yes Nausea and Vomiting Control Satisfactory: Yes Mental Status Recovered: Yes Vital Signs: Last Vital Signs Temp 36.1 C 05/19/20 10:55 Pulse 71 05/19/20 10:55 Resp 16 05/19/20 10:55 BP 143/69 H 05/19/20 10:55 Pulse Ox 99 05/19/20 10:55
[2020-05-19 12:56] VITALS: BP 147/87; PULSE 68
--- NOTE | 2020-05-26 10:37 | PCM.OPNOTE ---
- General Post-Op/Procedure Note Date of Surgery/Procedure: 05/19/20 Operative Procedure(s): right knee video arthroscopy with chondroplasty, loose body removal and partial synovectomy Pre Op Diagnosis: right knee osteoarthrosis awith loose body Post-Op Diagnosis: Same Anesthesia Technique: General LMA, Local Primary Surgeon: Rodolfo López Anesthesia Provider: Mirian Grider Financial Advocate: Berna Lopez EBL in mLs: 5 Complications: None Condition: Good
--- NOTE | 2020-05-26 11:02 | OR ---
DATE OF OPERATION: 05/19/2020 SURGEON: Rodolfo López MD OPERATION PERFORMED: Right knee video arthroscopy with chondroplasty, loose body removal, and partial synovectomy. PREOPERATIVE DIAGNOSIS: Right knee osteoarthritis with loose body. POSTOPERATIVE DIAGNOSIS: Right knee osteoarthritis with loose body. ANESTHESIA: General LMA with local. ANESTHESIA PROVIDER: Eloisa Barrett. BOARDING KENNEL OR CATTERY OPERATOR: Berna Lopez PA-C ESTIMATED BLOOD LOSS: 5 mL. COMPLICATIONS: None. CONDITION: Stable. DESCRIPTION OF PROCEDURE: The patient was identified in the preoperative holding area. Proper site was marked and identified by the surgeon. The patient was taken back to the operating theater where after adequate anesthesia, the patient's left lower extremity was placed in a well leg moore. Right lower extremity had a nonsterile tourniquet applied, was placed in a C-clamp moore, and the foot of the bed was lowered. The right lower extremity was then sterilely prepped and draped in the usual sterile fashion. OR time-out was performed. The patient received 2 g IV Ancef. Right lower extremity was exsanguinated. Tourniquet was insufflated to 250 mmHg. Standard anterolateral portal incision was made and scope trocar was introduced to the knee joint. At this time, the patient was noted to have grade 3 chondromalacia of the patellofemoral joint as well as grade 3/4 chondromalacia of the trochlea. The patient was noted to have a large amount of synovitis between the femur and the patella causing impingement. Attention was turned to medial compartment. There was noted to be loose bodies of cartilage noted in the medial compartment. Anteromedial portal was created and removal of the loose bodies was done at this time. The patient was noted to have no meniscal tear, but significant chondromalacia of the medial compartment with grade 2/3 chondromalacia of the medial femoral condyle and tibial plateau. Chondroplasty was performed of the medial femoral condyle back to a smooth border as well as the tibial plateau. ACL was intact in the notch. Lateral compartment did have another loose body which was resected at this time. Once this was completed, attention was turned to the synovium anteriorly, and a partial synovectomy was performed to the anterior knee back to a smooth border with that would not impinge on the patellofemoral joint. Excess saline was drained from the knee. 3-0 nylon suture was used for closure of the skin. The patient tolerated the procedure well and sent to PACU in stable condition. IRVIN /[id number]
== END 2020-05-19 12:30 | disposition home or self-care (01) ==
LOC: JD.SDS 08:32
PROVIDERS: ATTEND Orthopaedic Surgery
DX: M17.11 Unilateral primary osteoarthritis, right knee (principal); M23.41 Loose body in knee, right knee; M94.261 Chondromalacia, right knee; M65.861 Other synovitis and tenosynovitis, right lower leg; M25.861 Other specified joint disorders, right knee; Z01.812 Encounter for preprocedural laboratory examination; Z20.828 Contact with and (suspected) exposure to other viral communicable diseases; Z88.1 Allergy status to other antibiotic agents; Z91.040 Latex allergy status; Z91.018 Allergy to other foods; Z79.899 Other long term (current) drug therapy
CPT/HCPCS: 29875; 93005; J0171; J0690; J1100; J2001; J2250; J2405; J2704; J3010; J3490; J7120; 01400; J1885; U0002

== ENCOUNTER 2021-05-18 07:22 | Day surgery (SDC) | payer MEDICARE, BC ==
[~2021-05-18 07:22] MED LIST changes: +Acetaminophen 325 MG Tab PO SCH; -Dexamethasone 4 MG/ML 5 ML MDV ONE; -EPINEPHrine 1 MG/ML 30 ML MDV IRR SCH; -Ketorolac 30 MG/ML SDV ONE; -Lactated Ringers 1,000 ML IV SCH; -Lactated Ringers 1,000 ML ONE; -Lidocaine 1% 0 ML ONE; +Lidocaine 1% 4 ML ONE; +Morphine 8 MG, EPINEPHrine 0.3 MG, Cefuroxime 750 MG, Ketorolac 30 MG, Sodium Chloride ... PRN; +Pregabalin 25 MG Cap PO SCH; -Rocuronium 50 MG/5 ML Vial ONE; +Vancomycin 1 GM SDV ONE; -ceFAZolin 1 GM Vial ONE; -fentaNYL 250 MCG/5 ML SDV ONE; +oxyCODONE ER 10 MG TAB.ER PO SCH
[2021-05-18] MEDS ORDERED: ceFAZolin 1 GM Vial ONE (07:23)
[2021-05-18] MEDS ORDERED: Ropivacaine 0.5% 5 MG/ML 30 ML SDV ONE (07:38)
[2021-05-18] MEDS ORDERED: EPINEPHrine 1 MG/ML SDV ONE (07:38)
--- NOTE | 2021-05-18 08:00 | PCM.PREANE ---
Preanesthetic Assessment - Procedure Proposed Procedure: right total knee arthroplasty - Anesthesia/Transfusion/Family Hx Anesthesia History: Prior Anesthesia Without Reaction Family History of Anesthesia Reaction: No Transfusion History: No Prior Transfusion(s) Intubation History: Unknown - Review of Systems General: No Symptoms Pulmonary: Cough Cardiovascular: No Symptoms (pac history non symptomatic ) Gastrointestinal: No Symptoms Neurological: Seizure (hx as a baby ), Other (radiofrequency ablation every 6 months ) Other: Reports: None, Liver Problems (hepatic stenosis ) - Physical Assessment NPO Status Date: 05/17/21 NPO Status Time: 23:00 Vital Signs: Last Vital Signs Temp 36.8 C 05/18/21 07:30 Pulse 70 05/18/21 07:30 Resp 15 05/18/21 07:30 BP 160/94 H 05/18/21 07:30 Pulse Ox 98 05/18/21 07:30 Height: 1.63 m Weight: 70.7 kg ASA Class: 3 Mental Status: Alert & Oriented x3 Airway Class: Mallampati = 1 Dentition: Reports: Normal Dentition Thyro-Mental Finger Breadths: 3 Mouth Opening Finger Breadths: 5 ROM/Head Extension: Full - Lab Values: labs reviewed - Allergies Allergies/Adverse Reactions: Allergies Allergy/AdvReac Type Severity Reaction Status Date / Time latex Allergy Rash Verified 05/17/21 15:05 Latex, Natural Rubber Allergy Mild Rash, Verified 05/17/21 15:05 Itching NSAIDS (Non-Steroidal Allergy Cannot Verified 05/17/21 15:05 Anti-Inflamma Remember peach Allergy Cannot Verified 05/17/21 15:05 Remember strawberry Allergy Cannot Verified 05/17/21 15:05 Remember tomato Allergy Rash, Verified 05/17/21 15:05 Itching watermelon Allergy Cannot Verified 05/17/21 15:05 Remember erythromycin base AdvReac Nausea/Vomi Verified 05/17/21 15:05 ting scopolamine AdvReac Nausea/Vomi Verified 05/17/21 15:05 ting - Blood Blood Available: No - Anesthesia Plan Pre-Op Medication Ordered: None - Acknowledgements Anesthesia Type Planned: Spinal, Regional Block (adductor canal ) Pt an Appropriate Candidate for the Planned Anesthesia: Yes Alternatives and Risks of Anesthesia Discussed w Pt/Guardian: Yes Pt/Guardian Understands and Agrees with Anesthesia Plan: Yes PreAnesthesia Questionnaire HEENT History: Reports: Impaired Vision Other HEENT History: Patient wears eye glasses. 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 Patient reports her last seizure was when she was [age]. Psychiatric History: Reports: None Endocrine/Metabolic History: Reports: None Hematologic History: Reports: None Immunologic History: Reports: None Oncologic (Cancer) History: Reports: None Dermatologic History: Reports: None - Infectious Disease History Infectious Disease History: Reports: None - Past Surgical History Head Surgeries/Procedures: Reports: None HEENT Surgical History: Reports: None, Cataract Surgery, Other (See Below) Other HEENT Surgeries/Procedures: YAG laser Cardiovascular Surgical History: Reports: None Respiratory Surgical History: Reports: None GI Surgical History: Reports: Cholecystectomy, Colonoscopy, EGD Female Surgical History: Reports: Breast Biopsy Male Surgical History: Reports: None Endocrine Surgical History: Reports: None Neurological Surgical History: Reports: None Musculoskeletal Surgical History: Reports: Arthroscopic Knee, Other (See Below) Other Musculoskeletal Surgeries/Procedures:: Foot Surgery Oncologic Surgical History: Reports: Biopsy of Breast Dermatological Surgical History: Reports: None - SUBSTANCE USE Tobacco Use Status *Q: Never Tobacco User Recreational Drug Use History: No - HOME MEDS Home Medications: Home Meds Gabapentin [Neurontin] 600 mg PO BEDTIME 11/10/16 [History] Multivit-Min/FA/Lycopen/Lutein [Centrum Silver Tablet] 1 tab PO DAILY 11/10/16 [History] Rosuvastatin [Crestor] 5 mg PO BEDTIME 02/26/19 [History] Lidocaine 5% [Lidoderm 5%] 1 dose TOP Q12H PRN 05/18/20 [History] Cholecalciferol (Vitamin D3) [Vitamin D3] 2,000 unit PO DAILY 05/17/21 [History] Cyclobenzaprine [Flexeril] 10 mg PO TID PRN 05/17/21 [History] Neuravite 1 tab PO DAILY 05/17/21 [History] Pantoprazole Sodium [Protonix] 20 mg PO DAILY 05/17/21 [History] Verapamil HCl [Verapamil ER] 180 mg PO DAILY 05/17/21 [History] - CURRENT (IN HOUSE) MEDS Current Meds: Current Medications Acetaminophen (Acetaminophen 325 Mg Tab) 975 mg PO ONETIME TOMAS Stop: 05/18/21 13:00 Morphine Sulfate 8 mg/Epinephrine HCl 0.3 mg/Cefuroxime Sodium 750 mg/Ketorolac Tromethamine 30 mg/Sodium Chloride 7.9 ml 0 mg .XX ASDIRECTED PRN PRN Reason: Pain Stop: 05/18/21 16:00 Lactated Ringer's (Ringers, Lactated) 1,000 mls @ 125 mls/hr IV ASDIRECTED TOMAS Stop: 05/18/21 23:00 Lidocaine/Sodium Bicarbonate (Lidocaine 1%/Sod Bicarbonate In Ns 8.4% 1 Ml Syringe) 0.25 ml IDERM ONETIME PRN PRN Reason: Prior to IV Start Stop: 05/18/21 18:00 Oxycodone HCl (Oxycodone Er 10 Mg Tab.Er) 10 mg PO ONETIME TOMAS Stop: 05/18/21 13:00 Pregabalin (Pregabalin 25 Mg Cap) 50 mg PO ONETIME TOMAS Stop: 05/18/21 13:00 Sodium Chloride (Sodium Chloride 0.9% 10 Ml Syringe) 10 ml FLUSH ASDIRECTED PRN PRN Reason: Keep Vein Open Stop: 05/18/21 18:00 Discontinued Medications Cefazolin Sodium (Cefazolin 1 Gm Vial) Confirm Administered Dose 2 gm .ROUTE .STK-MED ONE Stop: 05/18/21 07:24 Epinephrine HCl (Epinephrine 1 Mg/Ml Sdv) Confirm Administered Dose 1 mg .ROUTE .STK-MED ONE Stop: 05/18/21 07:39 Lidocaine HCl (Xylocaine-Mpf 1%) Confirm Administered Dose 4 mls @ as directed .ROUTE .STK-MED ONE Stop: 05/18/21 07:18 Midazolam HCl (Midazolam 1 Mg/Ml 2 Ml Sdv) Confirm Administered Dose 2 mg .ROUTE .STK-MED ONE Stop: 05/18/21 07:18 Ondansetron HCl (Ondansetron 4 Mg/2 Ml Sdv) Confirm Administered Dose 4 mg .ROUTE .STK-MED ONE Stop: 05/18/21 07:18 Propofol (Propofol 200 Mg/20 Ml Sdv) Confirm Administered Dose 200 mg .ROUTE .STK-MED ONE Stop: 05/18/21 07:18 Ropivacaine (Ropivacaine 0.5% 5 Mg/Ml 30 Ml Sdv) Confirm Administered Dose 30 ml .ROUTE .STK-MED ONE Stop: 05/18/21 07:39 Tranexamic Acid (Tranexamic Acid 1,000 Mg/10 Ml Amp) Confirm Administered Dose 1,000 mg .ROUTE .STK-MED ONE Stop: 05/18/21 07:13 Vancomycin HCl (Vancomycin 1 Gm Sdv) Confirm Administered Dose 1 gm .ROUTE .STK- MED ONE Stop: 05/18/21 07:13
[2021-05-18] MEDS: Lactated Ringers 1,000 ML IV SCH ×2 (08:12→10:41)
[2021-05-18] MEDS ORDERED: Lactated Ringers 1,000 ML ONE (08:55)
[2021-05-18] MEDS ORDERED: Propofol 200 MG/20 ML SDV ONE (09:11)
[2021-05-18] MEDS ORDERED: HYDROmorphone 0.5 MG/0.5 ML Syringe IVPUSH PRN (10:06)
[2021-05-18] MEDS ORDERED: fentaNYL 100 MCG/2 ML SDV IVPUSH PRN (10:06)
[2021-05-18] MEDS ORDERED: Ondansetron 4 MG/2 ML SDV IVPUSH PRN (10:06)
--- NOTE | 2021-05-18 10:06 | PCM.POSTAN ---
POST ANESTHESIA ASSESSMENT - MENTAL STATUS Mental Status: Alert - VITAL SIGNS Vital Signs: Last Vital Signs Temp 36.5 C 05/18/21 09:57 Pulse 83 05/18/21 09:57 Resp 13 05/18/21 09:57 BP 102/60 05/18/21 09:57 Pulse Ox 94 L 05/18/21 09:57 - RESPIRATORY Respiratory Status: Respiratory Rate WNL, Airway Patent, O2 Saturation Stable, Supplemental Oxygen - CARDIOVASCULAR CV Status: Pulse Rate WNL, Blood Pressure Stable - GASTROINTESTINAL GI Status: No Symptoms - PAIN Pain Score: 0 - POST OP HYDRATION Hydration Status: Adequate & Stable
[2021-05-18] MEDS ORDERED: oxyCODONE 5 MG Tab PO PRN (10:23)
--- NOTE | 2021-05-18 10:37 | PCM.PRNOTE ---
- Free Text/Narrative Note: Right selective femoral nerve block at the adductor canal for post-procedure pain control under US guidance requested by Dr. López. Time Out: 1024 Start: 1025 End: 1028 Chart reviewed. Consent signed. Questions answered. Appropriate monitors applied. Time out performed. Right mid-shaft femur identified with ultrasound, scanning medially of femur, the femoral artery in the adductor canal visualized, and the femoral nerve located laterally to the artery. The skin was prepped lateral to the ultrasound probe with chlorahexadine times two. The 21ga 4 insulated block needle was inserted under direct ultrasound guidance into the adductor canal. 20mL of 0.5% ropivacaine with 1:200,000 epinephrine was injected circumferentially around the nerve with intermittent negative aspiration noted. Patient tolerated the procedure well. Sterile technique noted along with sterile gloves, mask, and sterile probe cover. See picture on progress note and vital signs on nurses notes. Block completed in PACU. Ludmila Velasquez, STORE SALES LEADER
--- NOTE | 2021-05-18 10:46 | PCM48HPAN ---
Post Anesthesia Note - EVALUATION WITHIN 48HRS OF ANESTHETIC Vital Signs in Normal Range: Yes Patient Participated in Evaluation: Yes Respiratory Function Stable: Yes Airway Patent: Yes Cardiovascular Function Stable: Yes Hydration Status Stable: Yes Pain Control Satisfactory: Yes Nausea and Vomiting Control Satisfactory: Yes Mental Status Recovered: Yes Vital Signs: Last Vital Signs Temp 36.3 C 05/18/21 10:27 Pulse 76 05/18/21 10:27 Resp 10 L 05/18/21 10:27 BP 128/70 05/18/21 10:27 Pulse Ox 98 05/18/21 10:27
--- NOTE | 2021-05-18 11:00 | CR ---
Right knee: AP and crosstable lateral views of the right knee were obtained. Comparison: Prior right knee CT study of 05/02/21. Knee prosthesis and patella prosthesis are noted. Components are aligned. Soft tissue air is noted. No underlying bony abnormality is appreciated. Impression: 1. Satisfactory postoperative radiographic appearance of recently placed right knee prostheses. Diagnostic code #2
[2021-05-18 14:25] VITALS: BP 133/86; PULSE 75
--- NOTE | 2021-06-04 14:02 | PCM.OPNOTE ---
- General Post-Op/Procedure Note Date of Surgery/Procedure: 05/18/21 Operative Procedure(s): right total knee arthroplasty with [employer]ha [employer] robot[employer] Pre Op Diagnosis: right knee osteartrhosis Post-Op Diagnosis: Same Anesthesia Technique: Local, MAC, Spinal Primary Surgeon: Rodolfo López Anesthesia Provider: Beulah Ochoa Hand Plate Stacker: Berna Lopez Hand Plate Stacker: Thi Hook EBL in mLs: 100 Complications: None Condition: Good Free Text/Narrative:: 10/12 9mm 29x9
--- NOTE | 2021-06-04 14:45 | OR ---
DATE OF OPERATION: 05/18/2021 SURGEON: Rodolfo López MD OPERATION PERFORMED: Right total knee arthroplasty with [place] [employer]. PREOPERATIVE DIAGNOSIS: Right knee osteoarthrosis. POSTOPERATIVE DIAGNOSIS: Right knee osteoarthrosis. ANESTHESIA: Local MAC with spinal. ANESTHESIA PROVIDER: Beulah Ochoa. ASSISTANTS: Berna Lopez PA-C and Thi Hook LPN ESTIMATED BLOOD LOSS: 100 mL. COMPLICATIONS: None. CONDITION: Stable. IMPLANTS: 1. [place] size 3 press-fit CR femur. 2. [place] size 3 press-fit tibial baseplate. 3. Rayn size 3, 9 mm CS polyethylene insert. 4. Ryan size 29 x 9 mm press-fit asymmetric patella. DESCRIPTION OF PROCEDURE: The patient was identified in the preoperative holding area. Proper site was marked and identified by the surgeon. The patient was taken back to the operative theater where after adequate anesthesia, the patient's right lower extremity had a nonsterile tourniquet applied and sterilely prepped and draped in the usual sterile fashion. OR time-out was performed. The patient received 2 g IV Ancef. Right lower extremity was exsanguinated. Tourniquet was insufflated to 250 mmHg. Standard anterior incision was made. Medial parapatellar arthrotomy was created. Deep fibers of the MCL were raised and anterior fat pad was resected. Attention was turned to the patella. Patella measured 21, resected to a 13 for 29 x 9 mm patella. Drill holes were drilled in adequate bone. Two 4.0 Schanz pins were then placed intraincisionally on the femur for the [place] [employer] robotic array. Two more were placed in the tibia 3 fingerbreadths below the tibial tubercle and check points were placed on the femur and the tibia. Hip center rotation was obtained. Medial and lateral malleoli were marked as well as the check points. 40 points were then obtained off the femur and the tibia for the [place] [employer] robotic plan. The patient's knee was brought to full extension and 90 degrees of flexion, and varus and valgus stresses were applied. [place] [employer] plan for this patient was then undertaken for symmetric flexion and extension gaps. Straight saw blade was then brought in. The tibial cut was completed. The anterior femoral cut, the anterior chamfer cut, and the posterior femoral cut were completed. Saw blade was switched. The distal femoral cut and the posterior chamfer cuts were completed. All bony fragments were removed. Medial and lateral meniscus were resected and any posterior osteophytes were removed. A size 2 trial baseplate was then placed, size 3 trial femur was placed, and a 9 mm trial spacer. The patient had full flexion and extension. There was no varus or valgus instability and no liftoff on the femur. Femoral drill holes were then drilled. Tibia was stamped and drilled in proper rotation. All trial implants were removed. Size 3 baseplate was then impacted into place, size 3 femur was then impacted into place, and a 9 mm CS polyethylene insert was impacted into place. The patient's knee was brought into full extension and a 29 x 9 mm press-fit patella was press-fit into place. Tourniquet was deflated. Bleeders were cauterized. 1 L pulse lavage irrigation with Ancef was irrigated through the knee along with 400 mL of IrriSept irrigation. Topical tranexamic acid and vancomycin powder were applied. #2 barbed suture was used for closure of the medial parapatellar arthrotomy, 2-0 Vicryl and Stratafix were used for subcutaneous closure, and Prineo was used for skin closure. The patient had a sterile soft dressing applied. Please note, [place] check points and pins were removed before closure. IRVIN /[id number]
== END 2021-05-18 13:19 | disposition home or self-care (01) ==
LOC: JD.SDS 07:22
PROVIDERS: ATTEND Orthopaedic Surgery
DX: M17.11 Unilateral primary osteoarthritis, right knee (principal); I10 Essential (primary) hypertension; I49.1 Atrial premature depolarization; E78.00 Pure hypercholesterolemia, unspecified; K21.9 Gastro-esophageal reflux disease without esophagitis; Z79.899 Other long term (current) drug therapy; Z88.8 Allergy status to other drugs, medicaments and biological substances; Z91.018 Allergy to other foods; Z91.040 Latex allergy status; Z98.890 Other specified postprocedural states; Z90.49 Acquired absence of other specified parts of digestive tract; G89.18 Other acute postprocedural pain
CPT/HCPCS: 27447; 73560; 97116; 97161; A9270; C1713; C1776; J0171; J0690; J0697; J1885; J2250; J2270; J2405; J2704; J2795; J3370; J7120; 01402; 64450; 99100

== ENCOUNTER 2024-07-23 08:11 | Emergency (ER) | payer MEDICARE, BC ==
[2024-07-23 08:50] LABS: BASOPHILS PERCENT AUTO 0.2 % (0.0-1.0); EOSINOPHILS ABSOLUTE AUTO 0.1 K/mm3 (0.0-0.4); EOSINOPHILS PERCENT AUTO 1.6 % (0.0-6.0); HEMATOCRIT 38.5 % (37.0-47.0); HEMOGLOBIN 14.2 gm/dl (12.0-16.0); IMMATURE GRAN ABSOLUTE AUTO 0.03 K/mm3 (0.00-0.05); IMMATURE GRAN PERCENT AUTO 0.5 % (0.0-0.4); MEAN CORPUSCULAR HEMOGLOBIN 31.9 pg (28.0-32.0); MEAN CORPUSCULAR HGB CONC 36.9 g/dl (32.0-36.0); MEAN CORPUSCULAR VOLUME 86.5 fl (83.0-99.0); MEAN PLATELET VOLUME 9.1 fl (9.4-12.3); MONOCYTES ABSOLUTE AUTO 1.1 K/mm3 (0.0-0.8); MONOCYTES PERCENT AUTO 17.9 % (0.0-8.0); NEUTROPHILS PERCENT AUTO 63.8 % (41.0-71.0); PLATELET COUNT,PLT 145 K/mm3 (150-400); RED BLOOD CELL COUNT 4.45 M/mm3 (4.10-5.30); WHITE BLOOD CELL COUNT,WBC 6.26 K/mm3 (3.9-11.3)
[2024-07-23 09:03] LABS: LACTIC ACID 1.4 mmol/L (0.4-2.0)
[2024-07-23] MEDS: Sodium Chloride 0.9% 500 ML IV ONE (09:04)
[2024-07-23] MEDS: Sodium Chloride 0.9% 10 ML Syringe FLUSH PRN (09:04)
[2024-07-23 09:10] LABS: A/G RATIO 1.1 (1-2); ALBUMIN 3.5 g/dl (3.4-5.0); ANION GAP 13.6 (5-15); BILIRUBIN TOTAL 1.8 mg/dL (0.2-1.0); BUN/CREATININE RATIO 7.5 (14-18); CALCIUM 8.7 mg/dL (8.5-10.1); CREATININE 1.2 mg/dL (0.55-1.02); EST CRCL DRUG DOSING (CG) 34.54 mL/min; MAGNESIUM 1.7 mg/dL (1.8-2.4); POTASSIUM,K 3.6 mEq/L (3.5-5.1); PROTEIN TOTAL,TP 6.6 g/dl (6.4-8.2)
[2024-07-23 10:24] LABS: APPEARANCE,URINE SLT CLOUDY (Clear); BILIRUBIN,URINE NEGATIVE (Negative); COLOR,URINE YELLOW (Yellow); GLUCOSE,URINE NEGATIVE (Negative); KETONES,URINE 3+ (Negative); LEUKOCYTE ESTERASE,URINE TRACE (Negative); NITRITE,URINE POSITIVE (Negative); OCCULT BLOOD,URINE NEGATIVE (Negative); PROTEIN,URINE 1+ (Negative); UROBILINOGEN,URINE 0.2 (0.2-1.0)
[2024-07-23 10:38] LABS: RBC,URINE 0-5 /hpf (0-5)
[2024-07-23 10:39] LABS: BACTERIA,URINE MANY /hpf (FEW); MUCUS,URINE MODERATE /hpf (FEW)
[2024-07-23] MEDS ORDERED: cefTRIAXone 500 MG Vial IVPUSH ONE (11:33)
[2024-07-23] MEDS: cefTRIAXone 1 GM Vial IVPUSH ONE (12:32)
[2024-07-23 13:36] VITALS: BP 129/73; PULSE 89
== END 2024-07-23 12:24 | disposition home or self-care (01) ==
LOC: JD.ED 08:11
DX: U07.1 COVID-19 (principal); N39.0 Urinary tract infection, site not specified; R55 Syncope and collapse; E78.00 Pure hypercholesterolemia, unspecified; K21.9 Gastro-esophageal reflux disease without esophagitis; Z90.49 Acquired absence of other specified parts of digestive tract; Z79.899 Other long term (current) drug therapy; Z88.1 Allergy status to other antibiotic agents; Z88.8 Allergy status to other drugs, medicaments and biological substances; Z91.018 Allergy to other foods; Z91.040 Latex allergy status; Z88.6 Allergy status to analgesic agent
CPT/HCPCS: 36415; 71045; 80053; 81001; 83605; 83735; 84484; 85025; 87040; 87086; 87428; 93005; 96361; 96374; 99285; J0696; J7030; 87088; 87186

== ENCOUNTER 2024-09-30 06:30 | Day surgery (SDC) | payer MEDICARE, BC ==
[~2024-09-30 06:30] MED LIST changes: -Acetaminophen 325 MG Tab PO SCH; +Lactated Ringers 1,000 ML IV SCH; -Lidocaine 1% 4 ML ONE; -Lidocaine 1%/Sod Bicarbonate in NS 8.4% 1 ML Syringe IDERM PRN; -Midazolam 1 MG/ML 2 ML SDV ONE; -Ondansetron 4 MG/2 ML SDV ONE; -Pregabalin 25 MG Cap PO SCH; -Propofol 200 MG/20 ML SDV ONE; +Sodium Chloride 0.9% 10 ML Syringe FLUSH SCH; -Vancomycin 1 GM SDV ONE; -oxyCODONE ER 10 MG TAB.ER PO SCH
[2024-09-30] MEDS ORDERED: Propofol 200 MG/20 ML SDV ONE (06:42)
[2024-09-30] MEDS ORDERED: fentaNYL 100 MCG/2 ML SDV ONE (06:43)
[2024-09-30] MEDS: Lactated Ringers 1,000 ML IV SCH (06:50)
[2024-09-30] MEDS ORDERED: Ropivacaine 0.5% 5 MG/ML 30 ML SDV ONE (06:55)
[2024-09-30] MEDS ORDERED: Lidocaine 2% 5 ML SDV ONE (07:11)
[2024-09-30] MEDS: Acetaminophen 325 MG Tab PO ONE (07:18)
[2024-09-30] MEDS: oxyCODONE ER 10 MG TAB.ER PO ONE (07:18)
[2024-09-30] MEDS: Pregabalin 25 MG Cap PO ONE (07:18)
[2024-09-30] MEDS ORDERED: fentaNYL 100 MCG/2 ML SDV IVPUSH PRN (08:08)
[2024-09-30] MEDS ORDERED: Ondansetron 4 MG/2 ML SDV IVPUSH PRN (08:08)
[2024-09-30] MEDS ORDERED: HYDROmorphone 0.5 MG/0.5 ML Syringe IVPUSH PRN (08:08)
[2024-09-30] MEDS ORDERED: ceFAZolin 2 GM Vial ONE (08:24)
[2024-09-30] MEDS ORDERED: Phenylephrine 1% 10 MG/ML SDV ONE (08:28)
[2024-09-30] MEDS ORDERED: Sodium Chloride 0.9% 100 ML ONE (08:29)
[2024-09-30] MEDS ORDERED: Ondansetron 4 MG/2 ML SDV ONE (09:05)
[2024-09-30] MEDS ORDERED: Lactated Ringers 1,000 ML IV ONE (09:15)
[2024-09-30] MEDS: Tranexamic Acid 1,000 MG/10 ML Vial ONE (09:24)
[2024-09-30] MEDS: VANCOmycin 1 GM SDV ONE (09:24)
[2024-09-30] MEDS: oxyCODONE 5 MG Tab PO PRN (13:45)
[2024-09-30] MEDS: Morphine 8 MG, EPINEPHrine 0.3 MG, Cefuroxime 750 MG, Ketorolac 30 MG, Sodium Chloride ... PRN (14:53)
[2024-09-30 15:14] VITALS: BP 126/71; PULSE 66
== END 2024-09-30 15:00 | disposition home or self-care (01) ==
LOC: JD.SDS 06:30
PROVIDERS: ATTEND Orthopaedic Surgery
DX: M17.12 Unilateral primary osteoarthritis, left knee (principal); I10 Essential (primary) hypertension; Z79.899 Other long term (current) drug therapy; Z91.018 Allergy to other foods; Z88.1 Allergy status to other antibiotic agents; Z91.040 Latex allergy status; Z88.8 Allergy status to other drugs, medicaments and biological substances
CPT/HCPCS: 0055T; 27447; 64447; 73560; 97116; 97161; A9270; C1713; C1776; J0171; J0690; J0697; J1885; J2272; J2371; J2405; J2704; J2795; J3010; J7120; J3490